=== PATIENT | male | born 1945 | race African-American/Black ===

== ENCOUNTER 2017-09-24 16:41 | Inpatient (IN) | payer MEDICARE, MEDICAID ==
[2017-09-24 18:22] LABS: Hemoglobin 9.4 g/dL (14.0-18.0); Mean Corpuscular HGB CONC 31.9 g/dL (32.0-36.0); Mean Corpuscular Hemoglobin 29.8 pg (27.0-31.0); Mean Corpuscular Volume 93.4 fl (80.0-94.0); Mean Platelet Volume 7.9 fL (7.4-10.4); Platelet Count 331 thou/uL (130-400); RBC Distribution Width 13.6 % (11.5-14.5); Red Blood Cell (RBC) Count 3.14 mill/uL (4.70-6.10); White Blood Cell (WBC) Count 24.4 thou/uL (4.8-10.8)
[2017-09-24 18:39] LABS: Bilirubin Negative (Negative); Blood, Urine Negative (Negative); Clarity TURBID (Clear); Glucose, Urine (Dipstick) Negative (Negative); Leukocyte Large (Negative); Nitrite Negative (Negative); Protein, Urine (Dipstick) 300 mg/dL (Neg-Trace); Specific Gravity, Urine 1.013 (1.002-1.036); Urobilinogen 0.2 mg/dL (0.2-1.0); pH, Urine 8.5 (5.0-9.0)
[2017-09-24 18:40] LABS: Bacteria/HPF 4+ HPF (None Seen); RBC/HPF 0-3 HPF (0-3); Squamous Epithelial 0-3 HPF (0-3); WBC/HPF 21-50 HPF (0-3)
[2017-09-24 18:41] LABS: Pathc Cast-AUWi Flag 3.89 (0-2.49)
[2017-09-24] MEDS ORDERED: Cefepime 2 GM/10 ML SYR ONE (18:41)
[2017-09-24 18:48] LABS: Lymphocytes 15 % (21-51); MDiff Complete? YES; Monocytes 6 % (0-10); Neutrophil 79 % (42-75); PLT Morphology Comment Appears Adequate
[2017-09-24 18:50] LABS: Crystals/HPF 1+ TRIPLE PHOS HPF (Negative); Hyaline Casts/LPF NONE SEEN LPF (0-3 Hyaline); Manual Microscopic Reviewed? No Path Casts Seen; Yeast-All Forms None Seen HPF (None Seen)
[2017-09-24 18:52] LABS: ALT (SGPT) 18 U/L (8-55); AST (SGOT) 23 U/L (5-34); Albumin 3.2 g/dL (3.4-4.8); Alkaline Phosphatase 90 U/L (40-150); Anion Gap 15 mmol/L (10-20); BUN (Urea Nitrogen) 97 mg/dL (8.4-25.7); Bilirubin, Total 0.2 mg/dL (0.2-1.2); CKMB 0.9 ng/mL (0-6.6); Calc. Creatinine Clearance 0 mL/min (70-130); Calcium 8.8 mg/dL (7.8-10.44); Carbon Dioxide 28 mmol/L (23-31); Chloride 95 mmol/L (98-107); Estimated GFR-MDRD 21; Globulin 5.3 g/dL (2.4-3.5); Glucose 156 mg/dL (80-115); Magnesium 3.1 mg/dL (1.6-2.6); Protein, Total 8.5 g/dL (5.8-8.1); Sodium 134 mmol/L (136-145); Troponin I 0.055 ng/mL (< 0.028)
--- NOTE | 2017-09-24 18:57 | RAD ---
CHEST ONE VIEW 09/24/17 HISTORY: Shortness of breath. COMPARISON: Chest one view 05/02/17. FINDINGS: There are air space opacities in both lower lobes. This appears improved from the comparison examinat ion. No pneumothorax. Cardiac and mediastinal contours are similar. IMPRESSION: Improving air space opacities in the lower lobe concerning for pneumonia, although opacities do persi sts. POS: [facility]
[2017-09-24] MEDS ORDERED: Oseltamivir 6 MG/ML ORAL SUSP PER TUBE SCH (21:15)
[2017-09-24 22:02] LABS: Troponin I 0.048 ng/mL (< 0.028)
[2017-09-25 01:30] LABS: Troponin I 0.038 ng/mL (< 0.028)
[2017-09-25] MEDS: Sodium Chloride 0.45% 1,000 ML IV SCH ×3 (14:40→15:22)
[2017-09-25] MEDS ORDERED: Acetaminophen 325 MG TAB PO PRN (15:09)
[2017-09-25] MEDS ORDERED: Dextrose 50% Abboject 50 ML SYRINGE IVP PRN (15:10)
[2017-09-25] MEDS ORDERED: Dextrose 5% in Water 1,000 ML IV PRN (15:10)
[2017-09-25] MEDS ORDERED: Insulin Regular 300 UNITS/3 ML VIAL SC PRN (15:10)
--- NOTE | 2017-09-25 15:53 | EKG ---
Test Reason : FEVERS Blood Pressure : / mmHG Vent. Rate : 081 BPM Atrial Rate : 081 BPM P-R Int : 146 ms QRS Dur : 090 ms QT Int : 414 ms P-R-T Axes : 046 004 -42 degrees QTc Int : 480 ms Normal sinus rhythm Possible Left atrial enlargement Nonspecific T wave abnormality Prolonged QT Abnormal ECG Confirmed by CAPRICE HERNÁNDEZ ([id number]), home health specialist RD UMAÑA ([id number]) on 09/25/2017 3:52:41 PM Referred By: Confirmed By:CAPRICE HERNÁNDEZ
[2017-09-25] MEDS ORDERED: Piperacillin/Tazobactam 2.25 GM in Sodium Chloride 0.9% 100 ML IVPB SCH (16:00)
[2017-09-25] MEDS: Piperacillin/Tazobactam 2.25 GM in Sodium Chloride 0.9% 50 ML IVPB SCH ×2 (16:49→23:23)
[2017-09-25] MEDS: Oseltamivir 75 MG CAP PO SCH (23:23)
--- NOTE | 2017-09-25 23:35 | HP ---
DATE OF ADMISSION: 09/25/2017 REASON FOR ADMISSION AND CHIEF COMPLAINT: Fever, lethargic. HISTORY OF PRESENT ILLNESS: Mr. Troy is a 72-year-old -[place] male with past medical histo ry of CVA and diabetes mellitus, PEG tube feeding, was found to have fever a few days ago, maximum te mperature of 101.9. The patient was started on Tamiflu because of exposure to the flu in the residential, but the fever did not resolve. The patient was also getting lethargic, not tolerating tube fe eding very well, with change in mental status and fever, the patient was sent to the hospital. In th e ER, the patient was evaluated and found to have fever and possible urinary tract infection versus b asilar pneumonia. The patient received cefepime, Levaquin, and vancomycin and also received IV fluid s in view of acute kidney injury. The patient is being admitted for further management. PAST MEDICAL HISTORY: 1. Diabetes mellitus. 2. Hypertension. 3. History of cerebrovascular accident. 4. Chronic kidney disease, stage 3. 5. History of hematuria. 6. History of pneumonia. 7. History of recurrent urinary tract infection. PAST SURGICAL HISTORY: 1. Status post appendectomy. 2. Status post cholecystectomy. 3. Status post rotator cuff injury. 4. Status post PEG tube placement. 5. Status post suprapubic catheter placement. CURRENT MEDICATIONS: Plavix 75 mg daily, amlodipine 5 mg daily, hydralazine 100 mg 4 times daily, is osorbide dinitrate 30 mg b.i.d., aspirin 81 mg daily, oxybutynin chloride 5 mg b.i.d., Keppra 500 b.i .d., clonidine 0.1 q.6 hours p.r.n., Lasix 40 mg daily, also get Levemir insulin 20 units daily . ALLERGIES: No known drug allergies. FAMILY HISTORY: Nothing of interest. SOCIAL HISTORY: The patient is a resident of [facility]. No history of smoking. No hi story of alcohol intake. REVIEW OF SYSTEMS: Cardiovascular: No chest pain, no shortness of breath. Respiratory: Fever. Johnson s cough productive with yellow sputum. Gastrointestinal: No nausea or vomiting. No abdominal pain. Central Nervous System: No headache, no dizziness. PHYSICAL EXAMINATION: GENERAL: The patient is alert, awake, oriented x2. VITAL SIGNS: Temperature 101, respirations 20, blood pressure 140/70, pulse 80. HEENT: Head is normocephalic, atraumatic. Pupils are equal and reactive to light. Nasopharynx is d ry and pale. Hard and soft palate, no lesions seen. SKIN: Skin turgor decreased. NECK: Supple. No JVD. LUNGS: Breath sounds diminished bilaterally. Percussion dull bilaterally. Crackles present at both bases. CARDIAC: S1, S2 regular. ABDOMEN: Soft, no distention, no tenderness. Normal bowel sounds present. RECTAL: Deferred. CENTRAL NERVOUS SYSTEM: No focal deficit. LABORATORY AND X-RAY FINDINGS: CBC shows WBC 24,000, hemoglobin 9.4, hematocrit 29, platelets 331. Metabolic panel: Sodium 134, potassium 4, chloride 95, CO2 of 28, BUN 97, creatinine 3.5, glucose 15 6. CK-MB 0.9, troponin I 0.055. Urinalysis shows wbc 21-50, bacteria 4+, leukocyte esterase large. Chest x-ray shows bibasal airspace opacities suggestive of pneumonia. EKG shows normal sinus rhythm , no acute ST-T wave changes seen. ASSESSMENT: 1. Leukocytosis and fever, rule out sepsis. 2. Pneumonia, bibasal. 3. Urinary tract infection. 4. Acute kidney injury. 5. Elevated troponin I, rule out myocardial infarction. 6. Diabetes mellitus. 7. Hypertension. 8. Chronic kidney disease, stage 3. 9. History of cerebrovascular accident. PLAN: 1. Vital signs q.4 hours. 2. Activity: As tolerated. 3. Allergies: No known drug allergies. 4. IV fluids: Half normal at 100 mL per hour. 5. Diet: Start tube feeding. 6. Zosyn 2.25 grams IV piggyback q.6 hours. 7. Continue residential medication. 8. Accu-Chek a.c. and at bedtime. 9. Sliding scale mild with regular insulin. 10. The patient is DNR.
[2017-09-26 01:48] VITALS: BMI 28.8
[2017-09-26] MEDS: Sodium Chloride 0.45% 1,000 ML IV SCH ×2 (01:51→13:39)
[2017-09-26] MEDS: Piperacillin/Tazobactam 2.25 GM in Sodium Chloride 0.9% 50 ML IVPB SCH ×4 (05:50→21:18)
[2017-09-26 09:31] LABS: #Eosinphils 0.3 thou/uL (0.0-0.7); #Lymphocytes 2.1 thou/uL (1.20-3.40); #Monocytes 1.1 thou/uL (0.11-0.59); #Neutrophils 11.2 thou/uL (1.40-6.50); %Basophils 0.2 % (0.0-1.0); %Eosinophils 1.9 % (0.0-10.0); %Lymphocytes 14.2 % (21.0-51.0); %Monocytes 7.4 % (0.0-10.0); %Neutrophils 76.4 % (42.0-75.0); Hemoglobin 8.7 g/dL (14.0-18.0); Mean Corpuscular HGB CONC 32.1 g/dL (32.0-36.0); Mean Corpuscular Hemoglobin 30.5 pg (27.0-31.0); Mean Platelet Volume 8.2 fL (7.4-10.4); Platelet Count 289 thou/uL (130-400); RBC Distribution Width 13.5 % (11.5-14.5); Red Blood Cell (RBC) Count 2.84 mill/uL (4.70-6.10); White Blood Cell (WBC) Count 14.6 thou/uL (4.8-10.8)
[2017-09-26 09:45] LABS: Anion Gap 13 mmol/L (10-20); BUN (Urea Nitrogen) 83 mg/dL (8.4-25.7); Calc. Creatinine Clearance 27 mL/min (70-130); Calcium 8.3 mg/dL (7.8-10.44); Carbon Dioxide 25 mmol/L (23-31); Chloride 103 mmol/L (98-107); Estimated GFR-MDRD 24; Glucose 100 mg/dL (80-115); Potassium 3.7 mmol/L (3.5-5.1); Sodium 137 mmol/L (136-145)
[2017-09-26] MEDS: Oseltamivir 75 MG CAP PO SCH ×2 (09:51→21:41)
[2017-09-26] MEDS ORDERED: Mag-Al 1200 mg/1200 mg/30 ML UDCUP PER TUBE PRN (16:48)
[2017-09-26] MEDS ORDERED: Calcium Carbonate 500 MG ChewTAB PER TUBE PRN (16:50)
[2017-09-26] MEDS ORDERED: cloNIDine 0.1 MG TAB PER TUBE PRN (16:51)
[2017-09-26] MEDS: hydrALAZINE 25 MG TAB PER TUBE SCH ×2 (18:23→21:44)
[2017-09-26] MEDS: guaiFENesin/Codeine Phosphate 200 mg/20 mg 10 ml UD Cup PER TUBE SCH ×2 (18:39→21:41)
[2017-09-26] MEDS: Oxybutynin 5 MG TAB PER TUBE SCH (21:41)
[2017-09-26] MEDS: Insulin Detemir 100 UNITS/ML 20 UNITS in Pre-Filled Syringe 1 EACH SC SCH (21:41)
[2017-09-26] MEDS: Sodium Bicarbonate Tab 325 MG TAB PER TUBE SCH (21:43)
[2017-09-26] MEDS: Atorvastatin Calcium 40 MG TAB PER TUBE SCH (21:43)
[2017-09-26] MEDS: Isosorbide Dinitrate 20 MG TAB PER TUBE SCH (21:44)
[2017-09-26] MEDS: Milk Of Magnesia 30 ML UDCUP PER TUBE SCH (21:45)
[2017-09-26] MEDS: levETIRAcetam 500 mg/5 ml Oral Solution PER TUBE SCH (21:45)
[2017-09-27] MEDS: Sodium Chloride 0.45% 1,000 ML IV SCH ×2 (00:31→17:42)
[2017-09-27] MEDS: guaiFENesin/Codeine Phosphate 200 mg/20 mg 10 ml UD Cup PER TUBE SCH ×6 (02:52→22:34)
[2017-09-27] MEDS: Piperacillin/Tazobactam 2.25 GM in Sodium Chloride 0.9% 50 ML IVPB SCH ×4 (04:41→22:35)
[2017-09-27] MEDS: Milk Of Magnesia 30 ML UDCUP PER TUBE SCH ×2 (09:06→22:35)
[2017-09-27] MEDS: Amlodipine 10 MG TAB PER TUBE SCH (09:07)
[2017-09-27] MEDS: levETIRAcetam 500 mg/5 ml Oral Solution PER TUBE SCH ×2 (09:07→22:32)
[2017-09-27] MEDS: Oxybutynin 5 MG TAB PER TUBE SCH ×2 (09:07→22:33)
[2017-09-27] MEDS: hydrALAZINE 25 MG TAB PER TUBE SCH ×4 (09:07→22:33)
[2017-09-27] MEDS: Sodium Bicarbonate Tab 325 MG TAB PER TUBE SCH ×2 (09:08→22:32)
[2017-09-27] MEDS: Isosorbide Dinitrate 20 MG TAB PER TUBE SCH ×2 (09:08→22:32)
[2017-09-27] MEDS: Clopidogrel Bisulfate 75 MG TAB PER TUBE SCH (09:08)
[2017-09-27] MEDS: Oseltamivir 75 MG CAP PO SCH ×2 (09:10→22:34)
--- NOTE | 2017-09-27 15:02 | PQF ---
CLINICAL DOCUMENTATION IMPROVEMENT CLARIFICATION FORM: ICD-10 Updated PLEASE DO AN ADDENDUM TO THE PROGRESS NOTE WITH ANY DOCUMENTATION UPDATES OR ADDITIONS AND CARRY THROUGH TO DC SUMMARY. THANK YOU. DATE: 09/27/17 ATTN: DR. MORENO Please exercise your independent, professional judgment in responding to the clarification form. Clinical indicators are provided on the bottom of this form for your review Please check appropriate box(s) to clarify if the following diagnosis has been ruled in our ruled out: SEPSIS [ ] Ruled in diagnosis [ ] Continue to treat [ ] Resolved [ ] Ruled out diagnosis [ y] Cannot rule out diagnosis [ ] Other diagnosis [ ] Unable to determine In addition, please specify: Present on Admission (POA): [ ] Yes [ ] No [ ] Unable to determine For continuity of documentation, please document condition throughout progress notes and discharge summary. Thank You. CLINICAL INDICATORS - SIGNS / SYMPTOMS / LABS H&P 09/25: " LEUKOCYTOSIS AND FEVER, RULE OUT SEPSIS" H&P 09/25: "...WAS FOUND TO HAVE FEVER A FEW DAYS AGO, MAXIMUM TEMPERATURE OF 101.9" H&P 09/25: "CHANGE IN MENTAL STATUS" WBC 24.4 RISKS: PNEUMONIA UTI ADMA ON CKD STAGE 3 TREATMENT: URINE AND BLOOD CULTURES SERIAL LABS IV LEVAQUIN (ER) IV CEFEPIME (ER) IV FLUIDS (ER-PRESENT) IV ZOSYN (09/25-PRESENT) (This form is maintained as a part of the permanent medical record) 2014 [employer]. All Rights Reserved GINA [email or web address] Office: [phone] [facility] H[facility]PITALShank[facility]
[2017-09-27] MEDS: Atorvastatin Calcium 40 MG TAB PER TUBE SCH (22:33)
[2017-09-27] MEDS: Insulin Detemir 100 UNITS/ML 20 UNITS in Pre-Filled Syringe 1 EACH SC SCH (22:52)
[2017-09-28] MEDS: guaiFENesin/Codeine Phosphate 200 mg/20 mg 10 ml UD Cup PER TUBE SCH ×6 (01:25→21:56)
[2017-09-28] MEDS: Sodium Chloride 0.45% 1,000 ML IV SCH ×2 (02:07→16:45)
[2017-09-28] MEDS: Piperacillin/Tazobactam 2.25 GM in Sodium Chloride 0.9% 50 ML IVPB SCH ×4 (03:58→21:58)
[2017-09-28 07:00] LABS: #Eosinphils 0.6 thou/uL (0.0-0.7); #Lymphocytes 1.9 thou/uL (1.20-3.40); #Neutrophils 8.6 thou/uL (1.40-6.50); %Eosinophils 4.9 % (0.0-10.0); %Lymphocytes 15.8 % (21.0-51.0); %Monocytes 8.2 % (0.0-10.0); %Neutrophils 71.1 % (42.0-75.0); Hemoglobin 8.1 g/dL (14.0-18.0); Mean Corpuscular HGB CONC 31.4 g/dL (32.0-36.0); Mean Corpuscular Volume 95.5 fl (80.0-94.0); Mean Platelet Volume 8.1 fL (7.4-10.4); Platelet Count 320 thou/uL (130-400); RBC Distribution Width 13.6 % (11.5-14.5); Red Blood Cell (RBC) Count 2.68 mill/uL (4.70-6.10); White Blood Cell (WBC) Count 12.1 thou/uL (4.8-10.8)
[2017-09-28 07:17] LABS: Anion Gap 11 mmol/L (10-20); BUN (Urea Nitrogen) 64 mg/dL (8.4-25.7); Calc. Creatinine Clearance 33 mL/min (70-130); Calcium 8.3 mg/dL (7.8-10.44); Carbon Dioxide 29 mmol/L (23-31); Chloride 103 mmol/L (98-107); Estimated GFR-MDRD 31; Glucose 102 mg/dL (80-115); Potassium 4.3 mmol/L (3.5-5.1); Sodium 139 mmol/L (136-145)
[2017-09-28] MEDS: hydrALAZINE 25 MG TAB PER TUBE SCH ×4 (09:04→21:56)
[2017-09-28] MEDS: levETIRAcetam 500 mg/5 ml Oral Solution PER TUBE SCH ×2 (09:04→21:57)
[2017-09-28] MEDS: Oseltamivir 75 MG CAP PO SCH ×2 (09:05→21:57)
[2017-09-28] MEDS: Sodium Bicarbonate Tab 325 MG TAB PER TUBE SCH ×2 (09:05→21:56)
[2017-09-28] MEDS: Isosorbide Dinitrate 20 MG TAB PER TUBE SCH ×2 (09:05→21:57)
[2017-09-28] MEDS: Clopidogrel Bisulfate 75 MG TAB PER TUBE SCH (09:06)
[2017-09-28] MEDS: Oxybutynin 5 MG TAB PER TUBE SCH ×2 (09:06→21:57)
[2017-09-28] MEDS: Amlodipine 10 MG TAB PER TUBE SCH (09:06)
[2017-09-28] MEDS: Milk Of Magnesia 30 ML UDCUP PER TUBE SCH ×2 (09:06→21:58)
[2017-09-28] MEDS: Atorvastatin Calcium 40 MG TAB PER TUBE SCH (21:57)
[2017-09-28] MEDS: Insulin Detemir 100 UNITS/ML 20 UNITS in Pre-Filled Syringe 1 EACH SC SCH (22:12)
[2017-09-29] MEDS: guaiFENesin/Codeine Phosphate 200 mg/20 mg 10 ml UD Cup PER TUBE SCH ×7 (01:07→22:10)
[2017-09-29] MEDS: Piperacillin/Tazobactam 2.25 GM in Sodium Chloride 0.9% 50 ML IVPB SCH ×4 (05:21→22:09)
[2017-09-29] MEDS: Amlodipine 10 MG TAB PER TUBE SCH (09:18)
[2017-09-29] MEDS: Clopidogrel Bisulfate 75 MG TAB PER TUBE SCH (09:21)
[2017-09-29] MEDS: Sodium Bicarbonate Tab 325 MG TAB PER TUBE SCH ×2 (09:22→22:12)
[2017-09-29] MEDS: Oseltamivir 75 MG CAP PO SCH ×2 (09:22→22:11)
[2017-09-29] MEDS: Milk Of Magnesia 30 ML UDCUP PER TUBE SCH ×2 (09:22→22:10)
[2017-09-29] MEDS: Oxybutynin 5 MG TAB PER TUBE SCH ×2 (09:22→22:11)
[2017-09-29] MEDS: Isosorbide Dinitrate 20 MG TAB PER TUBE SCH ×2 (09:23→22:11)
[2017-09-29] MEDS: hydrALAZINE 25 MG TAB PER TUBE SCH ×4 (09:23→22:12)
[2017-09-29] MEDS: levETIRAcetam 500 mg/5 ml Oral Solution PER TUBE SCH ×2 (09:23→22:10)
[2017-09-29] MEDS: Sodium Chloride 0.45% 1,000 ML IV SCH (10:24)
[2017-09-29] MEDS: Insulin Detemir 100 UNITS/ML 20 UNITS in Pre-Filled Syringe 1 EACH SC SCH (22:11)
[2017-09-29] MEDS: Atorvastatin Calcium 40 MG TAB PER TUBE SCH (22:12)
[2017-09-30] MEDS: Sodium Chloride 0.45% 1,000 ML IV SCH ×3 (00:23→20:01)
[2017-09-30] MEDS: guaiFENesin/Codeine Phosphate 200 mg/20 mg 10 ml UD Cup PER TUBE SCH ×7 (02:09→20:02)
[2017-09-30] MEDS: Piperacillin/Tazobactam 2.25 GM in Sodium Chloride 0.9% 50 ML IVPB SCH ×3 (05:10→15:46)
[2017-09-30 06:01] LABS: Anion Gap 13 mmol/L (10-20); BUN (Urea Nitrogen) 61 mg/dL (8.4-25.7); Calc. Creatinine Clearance 31 mL/min (70-130); Calcium 8.5 mg/dL (7.8-10.44); Carbon Dioxide 27 mmol/L (23-31); Chloride 105 mmol/L (98-107); Estimated GFR-MDRD 28; Glucose 81 mg/dL (80-115); Potassium 5.1 mmol/L (3.5-5.1); Sodium 140 mmol/L (136-145)
[2017-09-30 06:14] LABS: Eosinophils 2 % (0-10); Hemoglobin 8.1 g/dL (14.0-18.0); Lymphocytes 21 % (21-51); MDiff Complete? YES; Mean Corpuscular HGB CONC 30.7 g/dL (32.0-36.0); Mean Corpuscular Hemoglobin 29.1 pg (27.0-31.0); Mean Corpuscular Volume 94.9 fl (80.0-94.0); Mean Platelet Volume 8.3 fL (7.4-10.4); Monocytes 3 % (0-10); Neutrophil 74 % (42-75); PLT Morphology Comment Appears Adequate; Platelet Count 333 thou/uL (130-400); RBC Distribution Width 13.6 % (11.5-14.5); Red Blood Cell (RBC) Count 2.78 mill/uL (4.70-6.10); White Blood Cell (WBC) Count 14.6 thou/uL (4.8-10.8)
[2017-09-30] MEDS: levETIRAcetam 500 mg/5 ml Oral Solution PER TUBE SCH ×2 (09:50→20:01)
[2017-09-30] MEDS: Sodium Bicarbonate Tab 325 MG TAB PER TUBE SCH ×2 (09:51→20:01)
[2017-09-30] MEDS: Clopidogrel Bisulfate 75 MG TAB PER TUBE SCH (09:51)
[2017-09-30] MEDS: Milk Of Magnesia 30 ML UDCUP PER TUBE SCH ×2 (09:51→20:01)
[2017-09-30] MEDS: Amlodipine 10 MG TAB PER TUBE SCH (09:51)
[2017-09-30] MEDS: hydrALAZINE 25 MG TAB PER TUBE SCH ×4 (09:51→20:02)
[2017-09-30] MEDS: Isosorbide Dinitrate 20 MG TAB PER TUBE SCH ×2 (09:51→20:01)
[2017-09-30] MEDS: Oxybutynin 5 MG TAB PER TUBE SCH ×2 (09:52→20:01)
[2017-09-30] MEDS: Oseltamivir 75 MG CAP PO SCH (09:52)
[2017-09-30] MEDS: Atorvastatin Calcium 40 MG TAB PER TUBE SCH (20:01)
[2017-09-30] MEDS: Insulin Detemir 100 UNITS/ML 20 UNITS in Pre-Filled Syringe 1 EACH SC SCH (20:02)
[2017-09-30] MEDS: Amoxicillin/Potassium Clav 875 MG TAB PER TUBE SCH (20:02)
[2017-10-01] MEDS: guaiFENesin/Codeine Phosphate 200 mg/20 mg 10 ml UD Cup PER TUBE SCH ×2 (00:54→05:49)
[2017-10-01] MEDS: levETIRAcetam 500 mg/5 ml Oral Solution PER TUBE SCH (10:30)
[2017-10-01] MEDS: Milk Of Magnesia 30 ML UDCUP PER TUBE SCH (10:30)
[2017-10-01] MEDS: hydrALAZINE 25 MG TAB PER TUBE SCH (10:31)
[2017-10-01] MEDS: Amoxicillin/Potassium Clav 875 MG TAB PER TUBE SCH (10:31)
[2017-10-01] MEDS: Sodium Bicarbonate Tab 325 MG TAB PER TUBE SCH (10:31)
[2017-10-01] MEDS: Isosorbide Dinitrate 20 MG TAB PER TUBE SCH (10:31)
[2017-10-01] MEDS: Amlodipine 10 MG TAB PER TUBE SCH (10:32)
[2017-10-01] MEDS: Clopidogrel Bisulfate 75 MG TAB PER TUBE SCH (10:33)
[2017-10-01] MEDS: Oxybutynin 5 MG TAB PER TUBE SCH (10:33)
[2017-10-01 11:51] VITALS: BP 164/69; TEMP 98.5
--- NOTE | 2017-10-05 06:44 | DIS ---
DATE OF ADMISSION: 09/24/2017 DATE OF DISCHARGE: 10/01/2017 ADMITTING DIAGNOSES: 1. Leukocytosis and fever, rule out sepsis. 2. Pneumonia, bilateral, bibasal, aspiration. 3. Urinary tract infection. 4. Acute kidney injury. 5. Elevated troponin I, rule out myocardial infarction. 6. Diabetes mellitus. 7. Hypertension. 8. Chronic kidney disease, stage 3. 9. History of cerebrovascular accident. FINAL DIAGNOSES: 1. Aspiration pneumonia, bilateral on both bases, improving. 2. Urinary tract infection. 3. Leukocytosis and fever, resolved. 4. Acute kidney injury, improved. 5. Chronic kidney disease, stage 3. 6. Elevated troponin I. No evidence of acute myocardial infarction. 7. Diabetes mellitus. 8. Metabolic encephalopathy, improved. 9. Hypertension, uncontrolled, improved. 10. History of cerebrovascular accident. BRIEF SUMMARY OF HOSPITAL COURSE: Mr. Troy is a 72-year-old -[place]enian male with past medical history of CVA, chronic kidney disease, diabetes, and hypertension, who was found to have fever of 101. The patient was also found to have leukocytosis of 24,000. The patient was found to have bibasilar pneumonia, possibly aspiration as well as urinary tract infection. The patient has a suprapubic catheter. His influenza screen was negative. The patient was exposed to insulin there at the long-term, so he has been treated with Tamiflu. The patient was started on Zosyn and IV fluids because of acute kidney injury. His BUN was 97 on admission, came down to 60 with fluids; and creatinine was 3.57, came down to 2.7 with fluid therapy. His WBC came down from 24,000 to 12,000. Urine culture showed growth of Providencia as well as Proteus mirabilis resistant to Cipro and Macrobid but sensitive to Zosyn. The patient was continued on zosyn later it was changed to augmentin. In view of improvement, the patient is being discharged back to long-term. The patient did have elevated blood pressure. His medications were adjusted to control the blood pressure. The patient also had a swallow evaluation done to recheck his swallow ability, but the patient still cannot swallow himself. He still has aspiration problems. So in view of that, he was continued on bolus tube feedings. His blood cultures revealed no growth. PHYSICAL EXAMINATION: GENERAL: At the time of discharge, he was stable. VITAL SIGNS: Stable. LUNGS: Clear. HEART: Sounds regular. ABDOMEN: Soft and nontender. Bowel sounds present. DISCHARGE MEDICATIONS: Include sodium bicarbonate 650 b.i.d., Plavix 75 mg daily, insulin Levemir 20 units daily, Lipitor 40 mg daily, aspirin 81 mg daily , amlodipine 10 mg daily, hydralazine 100 mg q.i.d., oxybutynin chloride 5 mg b.i.d., calcium carbonate, Tums 500 q.i.d., DuoNeb q.i.d. p.r.n., clonidine p.r.n., Keppra 500 b.i.d., Imdur 60 b.i.d., ferrous sulfate daily, Lasix 40 mg daily, and the patient is given Augmentin 875 b.i.d. for 10 days. He has been transferred to a different long-term in [place]. [facility]
--- NOTE | 2017-10-08 12:52 | PQF ---
SHIREEN GASTON, GEO Buitrago MD [id number] LAURA EDWARDS [id number] CLINICAL DOCUMENTATION CLARIFICATION FORM: POST DISCHARGE DATE: 10/08/17 ATTN: Dr. Jacinto Please exercise your independent, professional judgment in responding to the clarification form. Clinical indicators are provided on the bottom of this form for your review Please check appropriate box(s): [ y] UTI please specify if due to or related to (as applicable): [ ] Indwelling catheter [ ] Self-catheterization [ y] Suprapubic catheter [ ] Unable to determine etiology UTI Site: [ ] Kidney [ ] Ureter [y ] Bladder [ ] Urethra [ ] Unable to determine Specify Organism (if known): [ ] Unknown organism [ ] Contaminated urine specimen without UTI [ ] Other diagnosis [ ] Unable to determine In addition, please specify: Present on Admission (POA): [ y] Yes [ ] No [ ] Unable to determine For continuity of documentation, please document condition throughout progress notes and discharge summary. Thank You. CLINICAL INDICATORS - SIGNS / SYMPTOMS / LABS Positive urinalysis Fever Documentation: UTI RISK FACTORS History indwelling catheter Debility / prison resident TREATMENT: Antibiotics IVF Sumner cath removed / changed (This form is maintained as a part of the permanent medical record) 2014 [employer]. All Rights Reserved [email or web address] [email or web address] [phone] MTDShankar
== END 2017-10-01 13:15 | disposition swing bed (61) | DRG 698 ==
LOC: ERS 16:41 → ERHOLD 20:32 → SURG A 09-25 13:57
PROVIDERS: ADMIT Internal Medicine; ATTEND Internal Medicine
DX: T83.511A Infection and inflammatory reaction due to indwelling urethral catheter, initial encounter (principal); A41.9 Sepsis, unspecified organism; J69.0 Pneumonitis due to inhalation of food and vomit; R65.20 Severe sepsis without septic shock; G93.41 Metabolic encephalopathy; N17.9 Acute kidney failure, unspecified; L89.152 Pressure ulcer of sacral region, stage 2; E11.22 Type 2 diabetes mellitus with diabetic chronic kidney disease; N18.3 Chronic kidney disease, stage 3 (moderate); Z93.1 Gastrostomy status; Z86.73 Personal history of transient ischemic attack (TIA), and cerebral infarction without residual deficits; I12.9 Hypertensive chronic kidney disease with stage 1 through stage 4 chronic kidney disease, or unspecified chronic kidney disease; Z79.01 Long term (current) use of anticoagulants; Z79.82 Long term (current) use of aspirin; Z79.4 Long term (current) use of insulin; Z66 Do not resuscitate; Z96.0 Presence of urogenital implants; B96.4 Proteus (mirabilis) (morganii) as the cause of diseases classified elsewhere; B96.89 Other specified bacterial agents as the cause of diseases classified elsewhere; Z16.20 Resistance to unspecified antibiotic; E86.0 Dehydration
CPT/HCPCS: 36415; 36416; 71045; 80048; 80053; 81003; 81015; 82553; 83605; 83735; 83880; 84484; 85025; 87040; 87077; 87086; 87186; 93005; 96361; 96365; 96367; 96375; G8996-GN-CN; G8997-GN-CM; J0692; J1815; J1956; J2543; J3370; J7050

== ENCOUNTER 2017-12-12 03:14 | Inpatient (IN) | payer MEDICARE, MEDICAID ==
[2017-12-12 04:24] LABS: Bilirubin Negative (Negative); Blood, Urine Negative (Negative); Clarity CLOUDY (Clear); Glucose, Urine (Dipstick) Negative (Negative); Leukocyte Large (Negative); Nitrite Positive (Negative); Protein, Urine (Dipstick) 100 mg/dL (Neg-Trace); Specific Gravity, Urine 1.012 (1.002-1.036); Urobilinogen 0.2 mg/dL (0.2-1.0); pH, Urine 8.5 (5.0-9.0)
[2017-12-12 04:26] LABS: Pathc Cast-AUWi Flag 0.88 (0-2.49)
[2017-12-12 04:31] LABS: Yeast-AUWi Flag 46.5 (0-25.0)
[2017-12-12 04:46] LABS: RBC/HPF 0-3 HPF (0-3)
[2017-12-12 04:47] LABS: Squamous Epithelial 0-3 HPF (0-3)
[2017-12-12 04:48] LABS: Bacteria/HPF 3+ HPF (None Seen); Yeast-All Forms None Seen HPF (None Seen)
[2017-12-12 04:50] LABS: Hyaline Casts/LPF NONE SEEN LPF (0-3 Hyaline)
[2017-12-12 05:19] LABS: #Eosinphils 0.5 thou/uL (0.0-0.7); #Lymphocytes 4.4 thou/uL (1.20-3.40); #Monocytes 0.9 thou/uL (0.11-0.59); #Neutrophils 7.4 thou/uL (1.40-6.50); %Eosinophils 3.8 % (0.0-10.0); %Lymphocytes 33.1 % (21.0-51.0); %Monocytes 6.9 % (0.0-10.0); %Neutrophils 56.2 % (42.0-75.0); Hemoglobin 8.7 g/dL (14.0-18.0); Mean Corpuscular Hemoglobin 29.4 pg (27.0-31.0); Mean Platelet Volume 9.3 fL (7.4-10.4); Platelet Count 222 thou/uL (130-400); RBC Distribution Width 14.6 % (11.5-14.5); Red Blood Cell (RBC) Count 2.96 mill/uL (4.70-6.10); White Blood Cell (WBC) Count 13.2 thou/uL (4.8-10.8)
[2017-12-12 05:37] LABS: Anion Gap 13 mmol/L (10-20); BUN (Urea Nitrogen) 91 mg/dL (8.4-25.7); Calc. Creatinine Clearance 0 mL/min (70-130); Calcium 9.3 mg/dL (7.8-10.44); Carbon Dioxide 24 mmol/L (23-31); Chloride 109 mmol/L (98-107); Estimated GFR-MDRD 30; Potassium 4.1 mmol/L (3.5-5.1); Sodium 142 mmol/L (136-145)
[2017-12-12 05:45] LABS: Glucose 52 mg/dL (80-115)
[2017-12-12] MEDS ORDERED: Dextrose 50% Abboject 50 ML SYRINGE ONE ×2 (06:00→06:11)
[2017-12-12] MEDS ORDERED: Piperacillin/Tazobactam 3.375 GM in Sodium Chloride 0.9% 100 ML IVPB SCH (07:00)
[2017-12-12] MEDS ORDERED: cefTRIAXone\\ROCEPHIN 1 GM VIAL IM SCH (07:00)
--- NOTE | 2017-12-12 08:21 | RAD ---
KUB: Date: 12/12/17 PROVIDED CLINICAL HISTORY: Clogged G tube. FINDINGS: Comparison made with study dated 04/18/17. The visualized lung bases are free of significant opacity. There is conspicuous colonic fecal retenti on suggesting constipation. There is an otherwise nonspecific bowel gas pattern. Surgical clips overl ie the left hemipelvis. Degenerative changes are seen involving the spine. Supine nature of the study is not sensitive for detection of pneumoperitoneum. Gastrostomy catheter overlies the left hemiabdom en. IMPRESSION: Findings suggesting constipation. POS: [facility]
[2017-12-12] MEDS ORDERED: Fleet Enema 133 ML BOT PR PRN (09:05)
[2017-12-12] MEDS ORDERED: Milk Of Magnesia 30 ML UDCUP PER TUBE PRN (09:05)
[2017-12-12] MEDS ORDERED: Loratadine 10 MG TAB PER TUBE PRN (09:05)
[2017-12-12] MEDS ORDERED: Ondansetron HCl/PF 4 MG/2 ML Vial IVP PRN (09:05)
[2017-12-12] MEDS ORDERED: Eucerin (Mineral Oil/Petrolatum,White) 30 gm Jar TOP PRN (09:05)
[2017-12-12] MEDS ORDERED: HumaLOG 300 UNITS/3 ML VIAL SC PRN (09:05)
[2017-12-12] MEDS ORDERED: Bisacodyl 10 MG SUPP PR PRN (09:05)
[2017-12-12] MEDS ORDERED: Mag-Al 1200 mg/1200 mg/30 ML UDCUP PER TUBE PRN (09:05)
[2017-12-12] MEDS ORDERED: Diabetic Tussin 200 MG/10 ML UDCUP PER TUBE PRN (09:05)
[2017-12-12] MEDS ORDERED: Dextrose 5% in Water 1,000 ML IV PRN (09:05)
[2017-12-12] MEDS ORDERED: Cefepime 1 GM in Sodium Chloride 0.9% 100 ML IVPB SCH (09:05)
[2017-12-12] MEDS ORDERED: Artificial Tears 18 DROP/0.9 ML EA EYE PRN (09:05)
[2017-12-12] MEDS ORDERED: Dextrose 50% Abboject 50 ML SYRINGE SLOW IVP PRN (09:05)
[2017-12-12] MEDS ORDERED: Sodium Chloride 0.65% Nasal 44 ML BOT EA NARE PRN (09:05)
[2017-12-12] MEDS ORDERED: Loperamide HCl 2 MG CAP PER TUBE PRN (09:05)
[2017-12-12] MEDS ORDERED: Ondansetron ODT 4 MG TAB SL PRN (09:05)
[2017-12-12] MEDS ORDERED: Heparin 5,000 UNITS/ML VIAL SC SCH ×2 (09:05→10:00)
[2017-12-12] MEDS ORDERED: Chloraseptic Spray 180 ml Bottle PO PRN (09:05)
[2017-12-12] MEDS: Cefepime 1 GM, Admixture Fee 1 EACH in Sodium Chloride 0.9% 10 ML SLOW IVP SCH (10:26)
--- NOTE | 2017-12-12 11:43 | HP ---
PRIMARY CARE PHYSICIAN: Dr. Indy Mcfarlane. REASON FOR ADMISSION: Hypoglycemia, clogged PEG tube, and urinary tract infection. HISTORY OF PRESENT ILLNESS: A 72-year-old male who lives in [place] at the [facility]. The patient was not able to get any tube feeding because of malfunction of P EG tube and PEG appeared to be clogged at [facility] and that is why the patient did not get any tu be feeding and he received insulin. Because of that, the patient developed hypoglycemia and the socrates ent became altered. The patient also became lethargic and that is why patient was sent to emergency room for evaluation. In the emergency room, this patient was hypoglycemic. This patient is nonverbal and not able to prov christopher any history. He has previous history of stroke and he is bedbound and he has PEG tube for the st couple of years. The patient is not able to take anything by mouth. The patient did not have any fever or chills. He does not have any Sumner catheter at [facility], [facility] in the emergency room, catheter was placed and his urinalysis was consistent with urinary tract in fections. In the emergency room, the patient was given Rocephin, Zosyn, dextrose, IV fluid, and D50. Subsequently, the patient was admitted to medical floor. The patient does have out of hospital DNR paper work and the patient's DNR status is also confirmed with the patient's present at bedside , who provided some history. REVIEW OF SYSTEMS: All review of systems tried to review with the patient, but unfortunately unable to review because patient is mostly nonverbal and unable to communicate with me. PAST MEDICAL HISTORY: Diabetes mellitus type 2, insulin requiring; hypertension; history of CVA with bed bound status; oropharyngeal dysphagia with PEG tube; chronic kidney disease, stage 4; history of recurrent urinary tract infection; narcolepsy; seizure disorder; chronic constipation; benign enlarg ement of prostate. PAST SURGICAL HISTORY: Appendicectomy, cholecystectomy, rotator cuff injury, PEG tube placement, sup rapubic catheter placement. PAST PSYCHIATRIC HISTORY: Reviewed and negative. ALLERGIES: No known drug allergy. FAMILY HISTORY: No strong family history of premature coronary artery disease, stroke or cancer. SOCIAL HISTORY: The patient lives at [facility]. The patient is bed dylan ct. No history of tobacco, alcohol or illicit drug abuse. CURRENT HOME MEDICATIONS: Amlodipine 10 mg per tube daily, aspirin 81 mg per tube daily, Lipitor 40 mg per tube daily, calcium carbonate 500 mg per tube q.i.d. p.r.n., Catapres 0.1 mg per tube q.6 hour ly p.r.n., Plavix 75 mg per tube daily, ferrous sulfate 300 mg per tube daily, Lasix 40 mg per tube d aily, hydralazine 100 mg per tube q.i.d., insulin 20 units subcu p.m. and Humalog insulin as per slid ing scale per protocol, DuoNeb q.6 hourly p.r.n., Imdur 60 mg per tube daily, Keppra 500 mg per tube b.i.d., oxybutynin 5 mg per tube b.i.d., sodium bicarbonate 650 mg per tube b.i.d. PHYSICAL EXAMINATION: VITAL SIGNS: On arrival, blood pressure 188/105, pulse 60, respiratory rate 16, temperature 97.8, sa turation 99% on room air, weight 77.1 kilograms. GENERAL: The patient is currently alert, awake, nonverbal, does not follow any commands. HEAD: Normocephalic, atraumatic. EYES: Pupils round, reactive to light. Extraocular muscle intact. ENT: Oropharynx within normal limit. Dry mucous membranes. No oral lesion, no pharyngeal erythema, no exudate. NECK: Supple, no JVD, no thyromegaly, no carotid bruit. LUNGS: Clear to auscultation without any rhonchi or rales. CARDIAC: S1, S2 appears regular. No murmur, no gallop, no rub. ABDOMEN: PEG tube in place, not working. No distention. Bowel sound is present. No organomegaly, no mass, no suprapubic tenderness. Suprapubic catheter in place. BACK: Unremarkable. No CVA tenderness. EXTREMITIES: Upper extremity passive movement of all joints is normal. Lower extremity, diffuse mus devante atrophy and no edema. SKIN: No skin rash. PSYCHIATRIC: Flat affect. NEUROLOGIC: The patient does have spasticity and rigidity of upper extremity on the right side as we ll as on lower extremity. The patient is nonverbal. Detailed neurological examination is not possib le. SIGNIFICANT LABORATORY DATA: CBC: WBC 13.2, hemoglobin 8.7, MCV 95, platelet 222. BMP shows sodium 142, potassium 4.1, chloride 109, carbon dioxide 24, BUN 91, creatinine 2.60, glucose 52, calcium 9. 3. Urinalysis suggestive of UTI. Abdomen x-ray showing constipation. PEG tube in place. ASSESSMENT AND PLAN: 1. Urinary tract infection. 2. Acute metabolic encephalopathy due to hypoglycemia. 3. Hypoglycemia associated with inability to get oral intake as well as insulin. 4. Chronic kidney disease stage 4. 5. History of cerebrovascular accident with residual weakness and spasticity as well as oropharyngea l dysphagia with PEG tube. 6. PEG tube malfunction. 7. Hypertension. 8. Dyslipidemia. 9. Diabetes type 2 with hypoglycemia. 10. Seizure disorder. 11. Bedbound status. PLAN: 1. Admission to medical floor. Gastroenterology consultation for PEG tube malfunction. The patient will need PEG tube replacement. Empiric antibiotic therapy with cefepime 1 gram q.12 hourly based o n previous culture result. Follow up on urine culture result. Skin care. Supportive care, medicati on via PEG tube when PEG tube able to function. Tube feeding is replaced. Meanwhile, we will contin ue with dextrose half normal saline at 75 mL per hour to prevent recurrent hypoglycemia. 2. Deep venous thrombosis prophylaxis, heparin 5000 units subcu twice daily. 3. GI prophylaxis, Protonix 40 mg IV daily. 4. Code status: The patient has out of hospital DNR paper work. The patient's is present at [facility], who is decision maker, and code status confirmed DNR status. Disposition plan based on clinical course. We are expecting patient's stay in hospital more than 2 m idnights. While in hospital, we will also continue hyperglycemia protocol treatment. Plan of care d iscussed with the patient and at bedside.
[2017-12-12] MEDS: Dextrose 5 %-0.45 % NaCl 1,000 ML IV SCH (12:42)
[2017-12-12] MEDS: Labetalol HCl 100 MG/20 ML VIAL SLOW IVP PRN (14:22)
--- NOTE | 2017-12-12 17:05 | OP ---
DATE OF PROCEDURE: 12/12/2017 PROCEDURE: Bedside PEG tube replacement. INDICATION FOR PROCEDURE: Malnutrition, oropharyngeal dysphagia. DESCRIPTION OF PROCEDURE: After a review of the patient's abdomen and the existing PEG tube, it was determined that this was the original PEG tube placed approximately 2 years ago, which would allow fo r tract maturation and should be amenable to replacement at bedside. A Bard 22-Micronesian replacement PE G tube was then procured from the endoscopy suite and taken to the patient's bedside. The patient to lerated the procedure well with no immediate perioperative complications. FINDINGS: Using gentle traction, the preexisting PEG tube was removed with minimal amount of blood o ozing from the stomal tract site that was minimal in the amount after cleaning the wound and properly preparing the area. A 22-Micronesian Bard replacement PEG tube was procured. The balloon on the PEG tub e was tested prior to placement of the PEG tube and deemed to be intact. Then, using a small amount of Surgilube, it was placed on the end of the PEG tube with the PEG tube slowly advanced through the stomal tract into the stomach. The PEG tube after approximately 15 mL of normal saline was then inst illed into the balloon port of the PEG tube. With gentle traction then performed after instillation of the normal saline and a small amount of pressure then experienced upon pulling back. The external bumper was then advanced into place with approximately 6 cm noted on the side of the PEG tube at the external bumper and 5 cm at the skin. The procedure was then terminated with the PEG tube remaining at that site with nursing staff to affix to his abdomen to prevent any inadvertent pulling of the PE G tube. IMPRESSION: Successful placement of a Bard 22-Micronesian replacement PEG tube. RECOMMENDATIONS: 1. The PEG tube is good to use immediately for tube feeds. 2. We would follow standard PEG tube care precautions including keeping the area around the PEG tube dry, and do not place any dressings between the external bumper and the skin to avoid compression of the internal balloon, please rotate the tube approximately 720 degrees daily to prevent secretion an d crusting around the PEG tube, we would instill approximately 60 mL of water before any tube feeds a nd 60 mL of water at the conclusion of any tube feeds to prevent further food debris collection and m alfunctioning in the future. We will sign off at this time. Please call with any additional questions.
--- NOTE | 2017-12-12 20:40 | CON ---
DATE OF CONSULTATION: 12/12/2017 REASON FOR CONSULTATION: Clogged PEG tube/malfunctioning PEG tube. CONSULTING PHYSICIAN: Dr. Darby Ferraro. HISTORY OF PRESENT ILLNESS: The patient is a 72-year-old -[place] male with past medical his tory of narcolepsy, seizure disorder, stroke with encephalopathy, chronic lower back pain, obesity, e nd-stage renal disease on hemodialysis, GERD, constipation, BPH, recurrent UTIs with suprapubic margaret ter, diabetes, hyperlipidemia, and hypertension, presenting with a clogged tube from [facility]. T he patient is currently aphasic and unable to contribute to any meaningful conversation, so all infor mation obtained was through chart review. Apparently, the patient is currently residing in [facility] and they experience acute malfunction of the PEG tube; however, this was not imm ediately recognized, so with the lack of tube feeds, he developed severe hypoglycemia with continued administration of insulin, prompting admission to [facility]. Per chart review, the patient was a dmitted to the hospital in 12/2015 with a probable aspiration pneumonia due to oropharyngeal dysphagi a. Shortly after discharge, he was evaluated by Speech Pathology ultimately with a PEG tube placed a t an outside institution at that time. It is unknown if he has had any replacement PEG tubes placed over between then and now, but upon visualization of the PEG tube, it appears to be the original PEG tube placed in 2015. REVIEW OF SYSTEMS: The patient cannot currently contribute to any meaningful review of systems quest ioning. PAST MEDICAL HISTORY: As per HPI. PAST SURGICAL HISTORY: Left rotator cuff surgery, appendectomy, cholecystectomy, PEG tube placement, and suprapubic catheter placement. FAMILY HISTORY: Per chart review, no GI malignancies. SOCIAL HISTORY: Denies any tobacco, alcohol, or drugs. OUTPATIENT MEDICATIONS: Reviewed. ALLERGIES: No known drug allergies. PHYSICAL EXAMINATION: VITAL SIGNS: Temperature of 97.5, pulse 67, blood pressure 168/70, respiratory rate 16, and satting 97% on room air. GENERAL: The patient is lying in bed comfortably in no acute distress, alert but not oriented. NECK: Supple. No JVD noted. CARDIOVASCULAR: Regular rate and rhythm with no discernible murmurs, gallops, or rubs. RESPIRATORY: Clear to auscultation bilaterally with no discernible wheezes or rales. ABDOMEN: Normoactive bowel sounds, soft, nontender, nondistended. PEG tube is noted with significan t food debris within the tubing itself in the left upper quadrant of the abdomen. It appears to be t he original Mal[place]ot tube. EXTREMITIES: No cyanosis, clubbing, or edema. LABORATORY DATA: CBC with a white blood cell count of 13.2, hemoglobin 8.7, hematocrit 28.1, platele ts 222. Chemistry with a sodium 142, potassium 4.1, chloride 109, CO2 of 24, BUN 91, creatinine 2.6. Glucose 52. Urinalysis was consistent with a urinary tract infection. IMAGING DATA: Abdominal x-ray obtained on 12/12/2017 showing findings suggesting constipation. ASSESSMENT AND PLAN: The patient is a 72-year-old male with past medical history of narcolepsy, seiz ure disorder, stroke with encephalopathy, chronic lower back pain, obesity, end-stage renal disease o n hemodialysis, constipation, BPH, recurrent UTIs with suprapubic catheter, diabetes, hyperlipidemia, and hypertension, presenting with malfunctioning PEG tube. Malfunctioning PEG tube. The patient is presenting with PEG tube placement approximately 2 years ago and a lot enough time for maturation of the stomal tract. Upon physical examination of the tube, it appears to be the origina l PEG tube itself with significant food debris within the tube itself. Given his recent episode of h ypoglycemia as noted in the ER. He was most likely due to inadequate tube feeds in addition to dick nuation of administration of insulin as an outpatient. At this time, it would be safe to replace thi s tube with a replacement Bard PEG tube at bedside for continue tube feeds. RECOMMENDATIONS: 1. We will obtain a replacement PEG tube from the endoscopy suite and replace the PEG tube at bedsid e. 2. Once the PEG tube is in place, tube feeds can be reinitiated immediately. 3. Could consider addition of MiraLax to regimen for constipation noted on the KUB.
[2017-12-12] MEDS: Heparin 5,000 UNITS/ML VIAL SC SCH (21:37)
[2017-12-13] MEDS: Acetaminophen 325 MG TAB PER TUBE PRN (01:39)
[2017-12-13] MEDS: Dextrose 5 %-0.45 % NaCl 1,000 ML IV SCH (01:40)
[2017-12-13] MEDS: hydrALAZINE 20 MG/ML VIAL SLOW IVP PRN ×3 (04:32→23:27)
[2017-12-13 05:42] LABS: #Eosinphils 0.3 thou/uL (0.0-0.7); #Lymphocytes 2.4 thou/uL (1.20-3.40); #Monocytes 0.7 thou/uL (0.11-0.59); #Neutrophils 5.5 thou/uL (1.40-6.50); %Basophils 0.3 % (0.0-1.0); %Eosinophils 3.8 % (0.0-10.0); %Lymphocytes 26.7 % (21.0-51.0); %Monocytes 7.5 % (0.0-10.0); %Neutrophils 61.7 % (42.0-75.0); Hemoglobin 8.4 g/dL (14.0-18.0); Mean Corpuscular HGB CONC 31.6 g/dL (32.0-36.0); Mean Corpuscular Hemoglobin 29.3 pg (27.0-31.0); Mean Corpuscular Volume 92.9 fl (80.0-94.0); Mean Platelet Volume 9.6 fL (7.4-10.4); Platelet Count 192 thou/uL (130-400); RBC Distribution Width 14.6 % (11.5-14.5); Red Blood Cell (RBC) Count 2.86 mill/uL (4.70-6.10)
[2017-12-13 05:52] LABS: Albumin 3.1 g/dL (3.4-4.8); Anion Gap 11 mmol/L (10-20); BUN (Urea Nitrogen) 76 mg/dL (8.4-25.7); BUN/Creatinine Ratio 31.54; Calc. Creatinine Clearance 0 mL/min (70-130); Calcium 8.8 mg/dL (7.8-10.44); Carbon Dioxide 24 mmol/L (23-31); Chloride 111 mmol/L (98-107); Estimated GFR-MDRD 32; Glucose 95 mg/dL (80-115); Phosphorus 3.9 mg/dL (2.3-4.7); Potassium 3.8 mmol/L (3.5-5.1); Sodium 142 mmol/L (136-145)
[2017-12-13] MEDS: Pantoprazole 40 MG VIAL IVP SCH (08:57)
[2017-12-13] MEDS: Heparin 5,000 UNITS/ML VIAL SC SCH ×2 (08:57→20:08)
[2017-12-13] MEDS: Cefepime 1 GM, Admixture Fee 1 EACH in Sodium Chloride 0.9% 10 ML SLOW IVP SCH (10:13)
[2017-12-13 10:41] VITALS: BMI 26.4
--- NOTE | 2017-12-13 11:40 | PDOC.PN ---
- Subjective Encounter Start Date: 12/13/17 Encounter Start Time: 10:10 -: old records requested/rev Patient seen and examined. No new complaints. No overnight events - Objective Resuscitation Status: Resuscitation Status DNR:Do Not Resuscitate MAR Reviewed: Yes Vital Signs & Weight: Vital Signs (12 hours) Temp Pulse Resp BP BP Pulse Ox 12/13/17 08:57 98.3 F 73 16 97 12/13/17 07:13 98.3 F 73 16 179/67 H 97 12/13/17 06:15 167/70 H 12/13/17 04:35 98.3 F 75 16 183/77 H 98 12/13/17 04:32 75 183/77 H Weight Weight 174 lb 12.8 oz I&O: 12/12/17 12/13/17 12/14/17 06:59 06:59 06:59 Intake Total 1480 Output Total 2100 Balance -620 Result Diagrams: 12/13/17 04:44 12/13/17 04:44 Additional Labs: Accuchecks 12/12/17 12/12/17 12/12/17 23:58 15:53 11:11 POC Glucose 102 100 114 H Phys Exam - Physical Examination Constitutional: NAD HEENT: PERRLA, moist MMs, sclera anicteric Neck: no JVD, supple Respiratory: no wheezing, no rales, no rhonchi Cardiovascular: RRR, no significant murmur, no rub Gastrointestinal: soft, non-tender, no distention, positive bowel sounds PEG tube, suprapubic cathteter+ Musculoskeletal: no edema, pulses present right side spasticity Lymphatic: no nodes Psychiatric: normal affect Skin: no rash, normal turgor Dx/Plan (1) Acute metabolic encephalopathy due to hypoglycemia Code(s): G93.41 - METABOLIC ENCEPHALOPATHY; E16.2 - HYPOGLYCEMIA, UNSPECIFIED Status: Acute (2) Hypoglycemia associated with type 2 diabetes mellitus Code(s): E11.649 - TYPE 2 DIABETES MELLITUS WITH HYPOGLYCEMIA WITHOUT COMA Status: Acute (3) PEG tube malfunction Code(s): K94.23 - GASTROSTOMY MALFUNCTION Status: Acute (4) UTI (urinary tract infection) due to urinary indwelling catheter Code(s): T83.511A - I/I REACT D/T INDWELLING URETHRAL CATHETER, INIT; N39.0 - URINARY TRACT INFECTION, SITE NOT SPECIFIED Status: Acute Qualifiers: Indwelling urinary catheter type: cystostomy catheter (5) Anemia, normocytic normochromic Code(s): D64.9 - ANEMIA, UNSPECIFIED Status: Chronic (6) CKD (chronic kidney disease) stage 4, GFR 15-29 ml/min Code(s): N18.4 - CHRONIC KIDNEY DISEASE, STAGE 4 (SEVERE) Status: Chronic (7) Dyslipidemia Code(s): E78.5 - HYPERLIPIDEMIA, UNSPECIFIED Status: Chronic (8) H/O: CVA (cerebrovascular accident) Code(s): Z86.73 - PRSNL HX OF TIA (TIA), AND CEREB INFRC W/O RESID DEFICITS Status: Chronic (9) Hypertension Code(s): I10 - ESSENTIAL (PRIMARY) HYPERTENSION Status: Chronic (10) Oropharyngeal dysphagia Code(s): R13.12 - DYSPHAGIA, OROPHARYNGEAL PHASE Status: Chronic (11) Physical deconditioning Code(s): R53.81 - OTHER MALAISE Status: Chronic - Plan cont current plan of care, continue antibiotics * start tube feeding * DC IVF * peg tube replaced * continue cefepime * follow culture * eventual placement to SNU when stable * medication reviewed as below * symptomatic treatment. Review of Systems - Review of Systems Other: not reliable and unable to obtain as pt is mostly non verbal - Medications/Allergies Allergies/Adverse Reactions: Allergies Allergy/AdvReac Type Severity Reaction Status Date / Time No Known Allergies Allergy Verified 08/10/16 12:55 Medications: Current Medications Acetaminophen (Tylenol) 650 mg PER TUBE Q4H PRN PRN Reason: Headache/Fever or Pain Last Admin: 12/13/17 01:39 Dose: 650 mg Al Hydroxide/Mg Hydroxide (Maalox) 30 ml PER TUBE Q6H PRN PRN Reason: Heartburn or Indigestion Artificial Tears (Tears Naturale) 0 drop EA EYE PRN PRN PRN Reason: Dry Eyes Bisacodyl (Dulcolax) 10 mg DC Q24H PRN PRN Reason: Constipation Dextrose/Water (Dextrose 50%) 25 gm SLOW IVP PRN PRN PRN Reason: Hypoglycemia Glucagon (Glucagon) 1 mg IM PRN PRN PRN Reason: Hypoglycemia Guaifenesin (Robitussin Sf) 200 mg PER TUBE Q4H PRN PRN Reason: Cough Heparin Sodium (Porcine) (Heparin) 5,000 units SC BID [facility] Last Admin: 12/13/17 08:57 Dose: 5,000 units Hydralazine HCl (Apresoline) 10 mg SLOW IVP Q4H PRN PRN Reason: Systolic BP > 180 Last Admin: 12/13/17 04:32 Dose: 10 mg Dextrose/Water (D5w) 1,000 mls @ 0 mls/hr IV .Q0M PRN; As Directed PRN Reason: Hypoglycemia Cefepime HCl 1 gm/Miscellaneous Medication 1 each/ Sodium Chloride 10 mls @ 120 mls/hr SLOW IVP 1000 [facility] Last Admin: 12/13/17 10:13 Dose: 10 mls Dextrose/Sodium Chloride (D5 1/2 Ns) 1,000 mls @ 75 mls/hr IV .[id number] [facility] Last Admin: 12/13/17 01:40 Dose: 1,000 mls Insulin Human Lispro (Humalog) 0 units SC .MODERATE SLIDING SC PRN PRN Reason: Moderate Correctional Scale Insulin Human Lispro (Humalog) 0 units SC .BEDTIME SLIDING SC PRN PRN Reason: Bedtime Correctional Scale Labetalol HCl (Normodyne) 20 mg SLOW IVP Q4H PRN PRN Reason: Systolic BP > 180 Last Admin: 12/12/17 14:22 Dose: 20 mg Loperamide HCl (Imodium) 2 mg PER TUBE PRN PRN PRN Reason: Diarrhea/Loose Stools Loratadine (Claritin) 10 mg PER TUBE DAILYPRN PRN PRN Reason: Sinus Symptoms Magnesium Hydroxide (Milk Of Magnesium) 30 ml PER TUBE DAILYPRN PRN PRN Reason: Constipation Mineral Oil/White Petrolatum (Eucerin Cream) 0 gm TOP BIDPRN PRN PRN Reason: Dry Skin Ondansetron HCl (Zofran Odt) 4 mg SL Q6H PRN PRN Reason: Nausea/Vomiting Ondansetron HCl (Zofran) 4 mg IVP Q6H PRN PRN Reason: Nausea/Vomiting Pantoprazole Sodium (Protonix) 40 mg IVP DAILY [facility] Last Admin: 12/13/17 08:57 Dose: 40 mg Phenol (Chloraseptic [place] 180 Ml Bot) 0 ml PO PRN PRN PRN Reason: Sore Throat Sodium Biphosphate/Sodium Phosphate (Fleet Enema) 133 ml DC ONE PRN PRN Reason: Constipation Stop: 12/13/17 15:00 Sodium Chloride ([place] Nasal [place] 0.65%) 0 ml EA NARE QIDPRN PRN PRN Reason: Nasal Congestion
[2017-12-13] MEDS ORDERED: VANCOMYCIN IVPB PRN (14:58)
[2017-12-13] MEDS: Vancomycin HCl 750 MG in Sodium Chloride 0.9% 250 ML 250 ML IVPB SCH (17:16)
[2017-12-14] MEDS: hydrALAZINE 20 MG/ML VIAL SLOW IVP PRN ×3 (03:26→18:11)
[2017-12-14] MEDS: Labetalol HCl 100 MG/20 ML VIAL SLOW IVP PRN (04:22)
[2017-12-14] MEDS: Heparin 5,000 UNITS/ML VIAL SC SCH ×2 (08:28→20:05)
[2017-12-14] MEDS: Pantoprazole 40 MG VIAL IVP SCH (08:28)
[2017-12-14] MEDS: Cefepime 1 GM, Admixture Fee 1 EACH in Sodium Chloride 0.9% 10 ML SLOW IVP SCH (10:42)
--- NOTE | 2017-12-14 12:04 | PDOC.PN ---
- Subjective Encounter Start Date: 12/14/17 Encounter Start Time: 12:02 Patient seen and examined, no new issues per nursing staff, patient remains non verbal - Objective Resuscitation Status: Resuscitation Status DNR:Do Not Resuscitate Vital Signs & Weight: Vital Signs (12 hours) Temp Pulse Resp BP BP Pulse Ox 12/14/17 11:52 98.3 F 73 18 175/68 H 96 12/14/17 08:28 98.3 F 75 18 97 12/14/17 07:35 98.3 F 72 18 189/75 H 97 12/14/17 05:48 179/68 H 12/14/17 04:22 75 182/70 H 12/14/17 04:00 98.3 F 75 18 183/70 H 98 12/14/17 03:26 75 183/70 H Weight Admit Weight 174 lb 12.8 oz Weight 174 lb 12.8 oz I&O: 12/13/17 12/14/17 12/15/17 06:59 06:59 06:59 Intake Total 1480 2936 Output Total 2100 1999 Balance -620 936 Result Diagrams: 12/13/17 04:44 12/13/17 04:44 Additional Labs: Accuchecks 12/14/17 12/14/17 12/13/17 05:50 00:08 18:14 POC Glucose 165 H 165 H 144 H 12/13/17 11:56 POC Glucose 97 Phys Exam - Physical Examination Constitutional: NAD HEENT: PERRLA, moist MMs, sclera anicteric Neck: no nodes, no JVD, supple Respiratory: no wheezing, no rales, no rhonchi Cardiovascular: RRR, no significant murmur, no rub Gastrointestinal: soft, non-tender, no distention +PEG in place Musculoskeletal: pulses present, edema present (trace B/L) Dx/Plan (1) PEG tube malfunction Code(s): K94.23 - GASTROSTOMY MALFUNCTION Status: Acute (2) CKD (chronic kidney disease) stage 4, GFR 15-29 ml/min Code(s): N18.4 - CHRONIC KIDNEY DISEASE, STAGE 4 (SEVERE) Status: Chronic (3) Dyslipidemia Code(s): E78.5 - HYPERLIPIDEMIA, UNSPECIFIED Status: Chronic (4) H/O: CVA (cerebrovascular accident) Code(s): Z86.73 - PRSNL HX OF TIA (TIA), AND CEREB INFRC W/O RESID DEFICITS Status: Chronic (5) Physical deconditioning Code(s): R53.81 - OTHER MALAISE Status: Chronic (6) Seizure disorder Code(s): G40.909 - EPILEPSY, UNSP, NOT INTRACTABLE, WITHOUT STATUS EPILEPTICUS Status: Chronic - Plan * PEG tube exchanged, will use PEG tube for next 24 hours * resume home BP meds * continue all other medical plan of care * DC plans once PEG tube functioning and cleared by GI * DC plans in 24-48hrs * no family at beside
[2017-12-14] MEDS: Vancomycin HCl 750 MG in Sodium Chloride 0.9% 250 ML 250 ML IVPB SCH (16:48)
[2017-12-14] MEDS: HumaLOG 300 UNITS/3 ML VIAL SC PRN (19:22)
[2017-12-14] MEDS: Isosorbide Dinitrate 20 MG TAB PER TUBE SCH (20:04)
[2017-12-14] MEDS: cloNIDine 0.1 MG TAB PER TUBE SCH (20:05)
[2017-12-14] MEDS: Acetaminophen 325 MG TAB PER TUBE PRN (20:11)
[2017-12-15] MEDS: hydrALAZINE 20 MG/ML VIAL SLOW IVP PRN (03:36)
[2017-12-15 05:45] LABS: #Eosinphils 0.3 thou/uL (0.0-0.7); #Lymphocytes 2.2 thou/uL (1.20-3.40); #Monocytes 0.8 thou/uL (0.11-0.59); #Neutrophils 5.4 thou/uL (1.40-6.50); %Eosinophils 3.9 % (0.0-10.0); %Monocytes 9.5 % (0.0-10.0); %Neutrophils 61.5 % (42.0-75.0); Hemoglobin 8.1 g/dL (14.0-18.0); Mean Corpuscular HGB CONC 32.1 g/dL (32.0-36.0); Mean Corpuscular Volume 93.5 fl (80.0-94.0); Mean Platelet Volume 9.8 fL (7.4-10.4); Platelet Count 176 thou/uL (130-400); RBC Distribution Width 14.8 % (11.5-14.5); Red Blood Cell (RBC) Count 2.69 mill/uL (4.70-6.10); White Blood Cell (WBC) Count 8.7 thou/uL (4.8-10.8)
[2017-12-15 06:10] LABS: ALT (SGPT) 33 U/L (8-55); AST (SGOT) 23 U/L (5-34); Alkaline Phosphatase 135 U/L (40-150); Anion Gap 9 mmol/L (10-20); BUN (Urea Nitrogen) 70 mg/dL (8.4-25.7); Bilirubin, Total 0.2 mg/dL (0.2-1.2); Calc. Creatinine Clearance 32 mL/min (70-130); Calcium 8.7 mg/dL (7.8-10.44); Carbon Dioxide 24 mmol/L (23-31); Chloride 112 mmol/L (98-107); Estimated GFR-MDRD 32; Globulin 4.8 g/dL (2.4-3.5); Glucose 166 mg/dL (80-115); Potassium 3.4 mmol/L (3.5-5.1); Protein, Total 7.8 g/dL (5.8-8.1); Sodium 142 mmol/L (136-145)
[2017-12-15] MEDS: HumaLOG 300 UNITS/3 ML VIAL SC PRN ×2 (06:48→16:16)
[2017-12-15] MEDS: Pantoprazole 40 MG VIAL IVP SCH (09:07)
[2017-12-15] MEDS: cloNIDine 0.1 MG TAB PER TUBE SCH (09:07)
[2017-12-15] MEDS: Isosorbide Dinitrate 20 MG TAB PER TUBE SCH (09:07)
[2017-12-15] MEDS: Cefepime 1 GM, Admixture Fee 1 EACH in Sodium Chloride 0.9% 10 ML SLOW IVP SCH (09:07)
[2017-12-15] MEDS: Heparin 5,000 UNITS/ML VIAL SC SCH (09:08)
[2017-12-15] MEDS ORDERED: cloNIDine 0.2mg/24 Hour PATCH TD SCH (10:30)
[2017-12-15 15:45] VITALS: BP 169/72; TEMP 98.1
--- NOTE | 2017-12-15 21:07 | DIS ---
DATE OF ADMISSION: 12/12/2017 DATE OF DISCHARGE: 12/15/2017 ADMITTING DIAGNOSIS: Percutaneous endoscopic gastrostomy tube malfunction; hypertension; hyperlipide chris; history of cerebrovascular accident; seizure disorder; constipation; chronic kidney disease, sta ge 4; and diabetes mellitus, type 2. DISCHARGE DIAGNOSES: Dysphagia; percutaneous endoscopic gastrostomy tube malfunction, percutaneous e ndoscopic gastrostomy tube replaced; chronic kidney disease, stage 4, stable; urinary tract infection ; seizure disorder, stable; constipation, stable; hypertension, stable; diabetes mellitus, type 2, st able. HOSPITAL COURSE: This is a 72-year-old male, who was admitted to the hospital from [facility] for PEG tube malfunction. Patient was admitted to the Internal Medicine team, was found to have a UTI. Cultures were received on the final date of discharge. The patient also had his PEG tube exchanged and was monitored for 24 hours to maintain function of PEG tube. Patient at point in time at discharge was cleared by GI as well as Internal Medicine. The patient was given prescriptio n for Keflex 250 to be taken twice a day for the next 7 days for his UTI. Patient's condition at the point in time of discharge was stable, and he was to go back to his snf for further managem ent and care. DISPOSITION: To the snf. MEDICATIONS: See MAR. CONDITION: Stable. PROGNOSIS: Poor. FOLLOWUP: PCP in 5-7 days for further management and care. DIET: PEG tube feedings. ACTIVITY: As tolerated with assistance. Case and plan discussed with nursing staff. No family at bedside.
== END 2017-12-15 18:10 | DRG 393 ==
LOC: ERS 03:14 → SURG A 06:30
PROVIDERS: ADMIT Internal Medicine; ATTEND Internal Medicine
PROC: 0D20XUZ Change Feeding Device in Upper Intestinal Tract, External Approach (ICD-10-PCS; principal; 2017-12-12)
DX: K94.23 Gastrostomy malfunction (principal); G93.41 Metabolic encephalopathy; R40.2223 Coma scale, best verbal response, incomprehensible words, at hospital admission; L89.302 Pressure ulcer of unspecified buttock, stage 2; E46 Unspecified protein-calorie malnutrition; N18.4 Chronic kidney disease, stage 4 (severe); N17.9 Acute kidney failure, unspecified; E11.22 Type 2 diabetes mellitus with diabetic chronic kidney disease; E11.649 Type 2 diabetes mellitus with hypoglycemia without coma; I69.351 Hemiplegia and hemiparesis following cerebral infarction affecting right dominant side; N39.0 Urinary tract infection, site not specified; T83.510A Infection and inflammatory reaction due to cystostomy catheter, initial encounter; Z68.25 Body mass index [BMI] 25.0-25.9, adult; R13.12 Dysphagia, oropharyngeal phase; Z66 Do not resuscitate; I12.9 Hypertensive chronic kidney disease with stage 1 through stage 4 chronic kidney disease, or unspecified chronic kidney disease; G40.909 Epilepsy, unspecified, not intractable, without status epilepticus; G47.419 Narcolepsy without cataplexy; I69.391 Dysphagia following cerebral infarction; N40.0 Benign prostatic hyperplasia without lower urinary tract symptoms; Z74.01 Bed confinement status; E78.5 Hyperlipidemia, unspecified; Z79.4 Long term (current) use of insulin; D64.9 Anemia, unspecified; R40.2353 Coma scale, best motor response, localizes pain, at hospital admission; R40.2143 Coma scale, eyes open, spontaneous, at hospital admission
CPT/HCPCS: 36415; 36416; 74018; 80048; 80053; 80069; 80202; 81003; 81015; 85025; 87040; 87077; 87086; 87149; 96361; 96365; 96375; C9113; J0360; J0692; J0696; J1644; J2543; J3370; J7050

== ENCOUNTER 2017-12-26 22:14 | Inpatient (IN) | payer MEDICARE, MEDICAID ==
[2017-12-26] MEDS ORDERED: Furosemide 40 MG/4 ML VIAL ONE (22:35)
[2017-12-26] MEDS ORDERED: Aspirin 300 MG Suppository ONE (22:35)
[2017-12-26] MEDS ORDERED: Nitroglycerin 0.4 MG TAB (25 Tab Bottle) ONE (22:35)
[2017-12-26 23:00] LABS: Bilirubin Negative (Negative); Blood, Urine Negative (Negative); Clarity CLOUDY (Clear); Glucose, Urine (Dipstick) Negative (Negative); Leukocyte Large (Negative); Nitrite Negative (Negative); Protein, Urine (Dipstick) 100 mg/dL (Neg-Trace); Specific Gravity, Urine 1.015 (1.002-1.036); Urobilinogen 0.2 mg/dL (0.2-1.0)
[2017-12-26 23:01] LABS: Bacteria/HPF 4+ HPF (None Seen); Hyaline Casts/LPF 7-10 HYALINE CAST LPF (0-3 Hyaline); Pathc Cast-AUWi Flag 1.01 (0-2.49); Squamous Epithelial None Seen HPF (0-3)
[2017-12-26 23:11] LABS: #Eosinphils 0.1 thou/uL (0.0-0.7); #Lymphocytes 1.6 thou/uL (1.20-3.40); #Monocytes 1.1 thou/uL (0.11-0.59); %Basophils 0.1 % (0.0-1.0); %Eosinophils 0.8 % (0.0-10.0); %Lymphocytes 11.7 % (21.0-51.0); %Monocytes 8.2 % (0.0-10.0); %Neutrophils 79.2 % (42.0-75.0); Hemoglobin 7.9 g/dL (14.0-18.0); Mean Corpuscular HGB CONC 31.4 g/dL (32.0-36.0); Mean Corpuscular Hemoglobin 28.5 pg (27.0-31.0); Mean Corpuscular Volume 90.5 fl (80.0-94.0); Mean Platelet Volume 10.4 fL (7.4-10.4); Platelet Count 181 thou/uL (130-400); Red Blood Cell (RBC) Count 2.78 mill/uL (4.70-6.10); White Blood Cell (WBC) Count 13.9 thou/uL (4.8-10.8)
--- NOTE | 2017-12-26 23:16 | RAD ---
PORTABLE AP CHEST X-RAY: 12/26/2017 HISTORY: Dyspnea. Crackles noted on exam. COMPARISON: 09/24/2017 FINDINGS: The cardiac silhouette is magnified by projection but does appear mildly enlarged. There are increas ed interstitial densities at each lung base, with slightly greater patchy parenchymal changes at the left lung base and left mid lung zone. These interstitial densities were present at each lung base o n the prior exam and, while some of these interstitial densities may be related to chronic interstiti al lung changes, greater patchy parenchymal changes at the left lung base are worrisome for pneumonia . The pulmonary vasculature is within normal limits. Degenerative changes are seen in the spine. N o other interval change. IMPRESSION: Findings suggestive of pneumonia/pneumonitis at the left lung base, in addition to mild bibasilar chr onic interstitial lung changes. Followup to complete resolution is recommended. POS: RUSTY
[2017-12-26 23:27] LABS: ALT (SGPT) 63 U/L (8-55); AST (SGOT) 49 U/L (5-34); Albumin 3.1 g/dL (3.4-4.8); Alkaline Phosphatase 192 U/L (40-150); Anion Gap 14 mmol/L (10-20); Bilirubin, Total 0.2 mg/dL (0.2-1.2); CK (CPK) 93 U/L (30-200); Calc. Creatinine Clearance 0 mL/min (70-130); Calcium 8.4 mg/dL (7.8-10.44); Carbon Dioxide 25 mmol/L (23-31); Chloride 93 mmol/L (98-107); Estimated GFR-MDRD 21; Globulin 5.1 g/dL (2.4-3.5); Glucose 171 mg/dL (80-115); Potassium 3.8 mmol/L (3.5-5.1); Protein, Total 8.2 g/dL (5.8-8.1); Sodium 128 mmol/L (136-145)
[2017-12-26 23:38] LABS: BUN (Urea Nitrogen) 132 mg/dL (8.4-25.7)
[2017-12-26] MEDS ORDERED: Milk Of Magnesia 30 ML UDCUP PO PRN (23:58)
[2017-12-26] MEDS ORDERED: Acetaminophen 325 MG TAB PO PRN (23:58)
[2017-12-27 00:12] LABS: CKMB 2.1 ng/mL (0-6.6)
[2017-12-27] MEDS ORDERED: Albuterol Sulfate 2.5 mg/3 ml Neb NEB PRN (00:22)
[2017-12-27 00:24] LABS: Troponin I 0.041 ng/mL (< 0.028)
[2017-12-27] MEDS ORDERED: Dextrose 50% Abboject 50 ML SYRINGE SLOW IVP PRN (00:29)
[2017-12-27] MEDS ORDERED: HumaLOG 300 UNITS/3 ML VIAL SC PRN (00:29)
[2017-12-27] MEDS ORDERED: Dextrose 5% in Water 1,000 ML IV PRN (00:29)
[2017-12-27] MEDS ORDERED: Nitroglycerin 0.4 MG TAB (25 Tab Bottle) SL PRN (00:38)
[2017-12-27] MEDS ORDERED: Ondansetron HCl/PF 4 MG/2 ML Vial IVP PRN (01:14)
[2017-12-27] MEDS ORDERED: Ondansetron ODT 4 MG TAB SL PRN (01:14)
[2017-12-27] MEDS ORDERED: Vancomycin HCl 1 GM in Premix Bag 1 BAG IVPB SCH (02:00)
--- NOTE | 2017-12-27 02:07 | HP ---
PRIMARY CARE PHYSICIAN: Dr. Indy Mcfarlane. PRESENTING COMPLAINT: Shortness of breath. HISTORY OF PRESENT ILLNESS: Mr. Richard Troy is a 72-year-old male, resident at [facility] who was brought to the emergency room today on account of shortness of breath. His oxygen saturation was found to be in the 70s and he has marked shortness of breath so he was brought to the hospital. There were no complaints of fevers, chills, chest pain. The patient is mainly nonfebrile at baseline as he has severe dementia and usually communicates by head movements. This, therefore, limits history from the patient. At the emergency room, he was immediately started on oxygen supplementation with improvement in his oxygen saturation. Blood cultures were taken. Physical examination reveals crackles bilateral lungs, lower extremity edema and chest x-ray showed findings suggestive of pneumonia in the left lung base in addition to mild bibasilar chronic interstitial lung changes. Blood cultures were taken and he was started on IV vancomycin and Levaquin, in addition to IV furosemide. On arrival, his blood pressure was also markedly high and nitro-paste was placed with improvement in a systolic blood pressure to 150s. EKG showed no signs of acute ischemia. The patient was then admitted for acute hypoxic respiratory failure, likely due to left lower lobe pneumonia as well as what seems to be mild CHF exacerbation. PAST MEDICAL HISTORY: Type 2 diabetes mellitus, hypertension, CVA history, oropharyngeal dysphagia with PEG tube, CKD stage 4, recurrent UTIs, narcolepsy, seizure disorder, chronic constipation, dementia, BPH. PAST SURGICAL HISTORY: Appendectomy, cholecystectomy, rotator cuff injury, PEG tube placement, suprapubic catheter placement. PAST PSYCHIATRIC HISTORY: Negative. ALLERGIES: None. FAMILY HISTORY: Reviewed and noncontributory. SOCIAL HISTORY: No history of tobacco abuse, alcohol intake, or illicit drug use. HOME MEDICATIONS: Acetaminophen 650 mg per tube q.6 p.r.n., aluminum magnesium hydroxide 30 mL per tube q.i.d. p.r.n., amlodipine 10 mg per tube daily, aspirin 81 mg daily, atorvastatin 40 mg daily, calcium carbonate 500 mg q.i.d., Keflex 250 mg b.i.d. , clonidine 0.1 mg q.6 hours p.r.n., clopidogrel 75 mg daily, ferrous sulfate 7.5 mg daily, furosemide 40 mg daily, guaifenesin/codeine phosphate 200 mg q.4 hours, hydralazine 100 mg q.i.d., insulin detemir 50 units at bedtime, insulin regular unclear dose, ipratropium/albuterol sulfate 3 mL nebulizer q.i.d., isosorbide dinitrate 60 mg b.i.d., Keppra 40 mg by tube, magnesium hydroxide 30 mL b.i.d., oxybutynin 5 mg b.i.d., sodium bicarbonate 650 mg b.i.d. REVIEW OF SYSTEMS: Unable to obtain due to patient's advanced dementia. PHYSICAL EXAMINATION: VITAL SIGNS: Oxygen saturation 97% via nasal cannula, pulse rate 85, respiratory rate 20, blood pressure 157/96. GENERAL: Not in acute distress, lying in bed with nasal cannula in situ. HEENT: Normocephalic, atraumatic. Not pale, anicteric. Moist mucous membranes. RESPIRATORY: Reduced breath sounds bilaterally. No wheezes or rales. CARDIOVASCULAR: S1 and S2 only. Regular rate and rhythm. No murmurs, rubs, or gallops. NECK: No JVD. EXTREMITIES: 1+ lower extremity edema. ABDOMEN: Soft, nontender, nondistended. Bowel sounds normoactive. PEG tube in place. No hepatosplenomegaly. NEUROLOGIC: Alert, but unable to cooperate with exam. SKIN: Well perfused. No rashes or lesions. MUSCULOSKELETAL: 1+ edema. PSYCHIATRIC: Unable to cooperate. LABORATORY DATA: Significant for hyponatremia of 128, elevated BUN/creatinine of 132/3.54, BNP of 314 (increased from September where it was 92), WBC 13.9, hemoglobin 7.9. Urinalysis showed leukocyte esterase, which increased number of wbc's, 4+ bacteria, but no nitrites. Blood cultures collected and pending. EKG: No signs of acute ischemia. Chest x-ray as reported in the HPI. ASSESSMENT: 1. Acute hypoxic respiratory failure. 2. Hypertensive urgency. 3. Acute kidney injury on chronic kidney disease. 4. Fluid overload. 5. Healthcare-associated pneumonia. 6. Urinary tract infection. PLAN: Blood cultures have been taken. Patient will be started on IV vancomycin on levofloxacin. We will follow up on blood cultures. We will also place him on DuoNeb and albuterol nebulizers p.r.n. He has received 1 dose of IV furosemide in the emergency room. We will monitor renal function as his acute kidney injury might be due to cardiorenal syndrome. Keep in mind his elevation in BNP. We will give an additional dose of IV furosemide and consider Cardiology consults. We will also order an echocardiogram. Last echo was done in 02/2015 and this revealed an EF of 50-55% with mild MR, TR, mild left atrial enlargement and early diastolic dysfunction. We will also resume his home medications once they have been confirmed. Blood pressure has been relatively well controlled with the nitro-paste. The patient is DNR and is confirmed with his spouse Ms. Gaurav Troy. Critical Care time: 35 minutes. TORIE
[2017-12-27 02:38] LABS: #Basophils 0.1 thou/uL (0.0-0.2); #Eosinphils 0.2 thou/uL (0.0-0.7); #Lymphocytes 1.5 thou/uL (1.20-3.40); #Monocytes 1.1 thou/uL (0.11-0.59); #Neutrophils 9.4 thou/uL (1.40-6.50); %Basophils 0.4 % (0.0-1.0); %Eosinophils 1.4 % (0.0-10.0); %Monocytes 9.1 % (0.0-10.0); %Neutrophils 77.1 % (42.0-75.0); Hemoglobin 7.6 g/dL (14.0-18.0); Mean Corpuscular HGB CONC 33.1 g/dL (32.0-36.0); Mean Corpuscular Hemoglobin 30.6 pg (27.0-31.0); Mean Corpuscular Volume 92.6 fl (80.0-94.0); Mean Platelet Volume 11.1 fL (7.4-10.4); Platelet Count 171 thou/uL (130-400); Red Blood Cell (RBC) Count 2.49 mill/uL (4.70-6.10); White Blood Cell (WBC) Count 12.3 thou/uL (4.8-10.8)
[2017-12-27 02:59] LABS: Troponin I 0.048 ng/mL (< 0.028)
[2017-12-27 03:05] LABS: ALT (SGPT) 55 U/L (8-55); AST (SGOT) 43 U/L (5-34); Albumin 2.9 g/dL (3.4-4.8); Alkaline Phosphatase 171 U/L (40-150); Anion Gap 15 mmol/L (10-20); Bilirubin, Total 0.2 mg/dL (0.2-1.2); Calc. Creatinine Clearance 24 mL/min (70-130); Calcium 8.5 mg/dL (7.8-10.44); Carbon Dioxide 24 mmol/L (23-31); Chloride 95 mmol/L (98-107); Estimated GFR-MDRD 21; Globulin 4.9 g/dL (2.4-3.5); Glucose 121 mg/dL (80-115); Potassium 4.7 mmol/L (3.5-5.1); Protein, Total 7.8 g/dL (5.8-8.1); Sodium 129 mmol/L (136-145)
[2017-12-27 03:18] LABS: BUN (Urea Nitrogen) 137 mg/dL (8.4-25.7)
[2017-12-27] MEDS ORDERED: Acetaminophen 650 MG/20.3 ML UDCUP PER TUBE PRN (04:05)
[2017-12-27] MEDS ORDERED: Milk Of Magnesia 30 ML UDCUP PER TUBE PRN (04:05)
[2017-12-27] MEDS ORDERED: Sodium Bicarbonate Tab 325 MG TAB PER TUBE PRN (04:05)
[2017-12-27] MEDS ORDERED: cloNIDine 0.1 MG TAB PER TUBE PRN (04:05)
[2017-12-27] MEDS ORDERED: Calcium Carbonate 500 MG ChewTAB PER TUBE PRN (04:05)
[2017-12-27] MEDS ORDERED: guaiFENesin/Codeine Phosphate 200 mg/20 mg 10 ml UD Cup PER TUBE PRN (04:05)
[2017-12-27] MEDS ORDERED: Mag-Al 1200 mg/1200 mg/30 ML UDCUP PER TUBE PRN (04:05)
[2017-12-27 05:44] LABS: Troponin I 0.067 ng/mL (< 0.028)
[2017-12-27] MEDS ORDERED: Furosemide 40 MG/4 ML VIAL SLOW IVP SCH (06:00)
[2017-12-27] MEDS: Docusate Sodium 100 MG/10 ML UDCUP PER TUBE SCH ×2 (08:36→20:29)
[2017-12-27] MEDS: Oxybutynin 5 MG TAB PER TUBE SCH ×2 (08:37→20:29)
[2017-12-27] MEDS: levETIRAcetam 500 mg/5 ml Oral Solution PER TUBE SCH ×2 (08:38→20:28)
[2017-12-27] MEDS: hydrALAZINE 25 MG TAB PER TUBE SCH ×4 (08:38→20:29)
[2017-12-27] MEDS: Isosorbide Dinitrate 20 MG TAB PER TUBE SCH ×2 (08:38→20:30)
[2017-12-27] MEDS: Heparin 5,000 UNITS/ML VIAL SC SCH ×3 (08:39→20:38)
[2017-12-27] MEDS: Amlodipine 10 MG TAB PER TUBE SCH (08:39)
[2017-12-27] MEDS: Clopidogrel Bisulfate 75 MG TAB PER TUBE SCH (08:39)
[2017-12-27] MEDS ORDERED: [UNRECOGNIZED DRUG - OTHER] PO SCH (09:00)
[2017-12-27] MEDS ORDERED: AMINO ACIDS PO SCH (09:00)
[2017-12-27] MEDS ORDERED: PROTEIN HYDROLYS PO SCH (09:00)
--- NOTE | 2017-12-27 11:27 | PDOC.PN ---
- Subjective Encounter Start Date: 12/27/17 Encounter Start Time: 11:25 CC: dyspnea sub: Pt is lethargic. Pt was seen by hospitalist early this am - Objective Vital Signs & Weight: Vital Signs (12 hours) Temp Pulse Resp BP BP Pulse Ox 12/27/17 11:24 98.6 F 69 20 137/51 L 100 12/27/17 10:43 69 20 100 12/27/17 08:39 76 149/51 H 12/27/17 08:38 73 149/51 H 12/27/17 07:58 98.5 F 66 22 H 12/27/17 07:49 98.5 F 66 22 H 155/54 H 100 12/27/17 07:20 70 18 100 12/27/17 04:15 98.3 F 77 18 155/55 H 95 12/27/17 03:12 73 16 100 12/27/17 02:36 98 F 82 16 12/27/17 01:51 82 16 177/51 H 100 Weight Admit Weight 191 lb 9.6 oz Weight 191 lb 9.6 oz I&O: 12/26/17 12/27/17 12/28/17 06:59 06:59 06:59 Output Total 500 Balance -500 Result Diagrams: 12/27/17 02:28 12/27/17 02:28 Additional Labs: Accuchecks 12/27/17 05:34 POC Glucose 110 Phys Exam - Physical Examination Constitutional: NAD lethargic HEENT: moist MMs Neck: no JVD positive crackles, diminished at bases, no rhonchi Cardiovascular: RRR, no significant murmur, no rub Gastrointestinal: soft, non-tender no guarding, no rebound tenderness Musculoskeletal: no edema Neurological: non-focal lethargic, but arousable, not following all commands Skin: no rash Dx/Plan - Plan * . Pt is 89 yrs old male 1. Acute Hypoxic respiratory failure 2. Pulmonary edema 3. ADAM over CKD 4. HTN 5. Possible pneumonia Plan: 1. Will start lasix 40mg iv q12hrs 2. Cradio, pulmonary and nephrology on board. Management per them 3. Continue bp meds 4. Continue iv antibiotics 5. Check ABG case d/w pt & Pt
[2017-12-27] MEDS: Furosemide 40 MG/4 ML VIAL SLOW IVP SCH (14:14)
--- NOTE | 2017-12-27 16:00 | CON ---
DATE OF CONSULTATION: 12/27/2017 HISTORY OF PRESENT ILLNESS: Mr. Richard Troy is a 72-year-old male who lives in [facility]. The history is obtained from the . He has dementia. He was noted to be tachypneic and hypoxic and was admitted to the intermediate care unit. He is nonverbal. That is his baseline according to the . He appears totally comfortable at this time. He was diagnosed with pneumonia. PAST MEDICAL HISTORY: Remarkable for; 1. Diabetes. 2. Hypertension. 3. Cerebrovascular accident. 4. Oropharyngeal dysphagia with a PEG placed a year ago according to the . 5. Chronic kidney disease. 6. History of a seizure disorder. 7. History of dementia. 8. History of BPH. 9. History of an appendectomy. 10. History of a cholecystectomy. 11. History of rotator cuff surgery. 12. History of suprapubic catheter placed. FAMILY HISTORY: Non Contributory SOCIAL HISTORY: He is a nonsmoker, nondrinker. He does use drugs. ALLERGIES: There are no reported drug allergies. MEDICATIONS: Have been reviewed. REVIEW OF SYSTEMS: Not obtainable since he is nonverbal. PHYSICAL EXAMINATION: GENERAL: Patient is in custodial with dementia. VITAL SIGNS: He is afebrile, heart rate 60, blood pressure 135/46, respiratory 20, oximetry is 100% on 3 liters and blood pressure is 137/51. HEENT: Pupils are equal. Sclerae is anicteric. NECK: Supple. LUNGS: Remarkable for rhonchi at his left base. HEART: Regular rhythm. S1 and S2 are normal. ABDOMEN: Soft and nontender. EXTREMITIES: With plantar flexion contractures. Has chronic stasis changes. IMAGING DATA: Chest radiograph shows an alveolar infiltrate in his left base. IMPRESSION: 1. Probable aspiration pneumonia. 2. Advanced dementia. 3. Status post percutaneous endoscopic gastrostomy and suprapubic catheter. PLAN: He is stable through the night. He can be transferred to a medical bed. He is a do not resuscitate patient. This is 50 minute consult, of which greater than 50% was spent on the unit coordinating care. TORIE
[2017-12-27] MEDS: Atorvastatin Calcium 40 MG TAB PER TUBE SCH (20:30)
--- NOTE | 2017-12-27 23:36 | CON ---
DATE OF CONSULTATION: 12/27/2017 HISTORY OF PRESENT ILLNESS: Richard Troy is a 72-year-old black male, jail resident, who has had previous strokes and is essentially bedridden. At [facility], he was found to have O2 sats in the 70% range and was markedly short of breath, was brought to the hospital. Apparently, he did not complain of any cough, fever or chest pain. Blood cultures were taken in the emergency room. He was started on IV vancomycin and Levaquin as well as IV furosemide. Mr. Troy is unable to give any history. PAST MEDICAL HISTORY: Diabetes, hypertension, history of CVA, PEG tube placement, chronic kidney disease stage 4, recurrent UTIs, narcolepsy, seizure disorder, dementia and BPH. OPERATIONS: Appendectomy, cholecystectomy, rotator cuff surgery, PEG tube placement and suprapubic urine catheter placement. MEDICATIONS: Include acetaminophen p.r.n., Maalox p.r.n., amlodipine 10 mg daily, aspirin 81 daily, atorvastatin 40 daily, Tums 500 mg q.i.d. p.r.n., Catapres p.r.n., Plavix 75 mg daily, ferrous sulfate 7.5 mL per tube daily, furosemide 40 mg daily, hydralazine 100 mg q.i.d., Humulin R, DuoNeb p.r.n., isosorbide dinitrate 60 b.i.d., Keppra 500 mg b.i.d., and oxybutynin 5 mg b.i.d. ALLERGIES: None. SOCIAL HISTORY: Unobtainable. FAMILY HISTORY: Unobtainable. REVIEW OF SYSTEMS: Unobtainable. PHYSICAL EXAMINATION: VITAL SIGNS: Blood pressure 135/46 and pulse is 66. HEENT: PERRL. NECK: Supple. CHEST: Reveals crackles at the bases. CARDIOVASCULAR: S1, S2 normal, without any S3, S4 or murmurs. ABDOMEN: Normal bowel sounds, without tenderness, organomegaly. EXTREMITIES: Revealed trace pretibial edema. NEUROLOGIC: The patient will move the extremities to command; however, is relatively aphasic and does not give any verbal answers. SKIN: Warm and dry. LABORATORY AND IMAGING DATA: EKG reveals normal sinus rhythm with nonspecific ST segment changes. Hemoglobin 10.6, hematocrit 23.1, white count 12,300 and platelets 171,000. Sodium 129, potassium 4.7, chloride 95, carbon dioxide 24, BUN 137, creatinine 3.50, glucose 121, AST 43, alkaline phosphatase 171. BNP 314.6, troponin I 0.67. Chest x-ray revealed mild probable left lung base pneumonia with bibasilar chronic interstitial changes. IMPRESSION: 1. Shortness of breath, probably secondary to pneumonia, chronic bedridden state. 2. Chronic kidney disease with creatinine increasing from 2.44 to 3.54 over approximately 10 days. 3. Chronically elevated Troponin I, which probably is due to his renal insufficiency and demand ischemia. 4. Hypertension. 5. Diabetes. 6. History of cerebrovascular accident. 7. Hyperlipidemia. 8. Seizure disorder. 9. Dementia. 10. Benign prostatic hypertrophy. 11. The patient is DNR. RECOMMENDATIONS: Echocardiogram will be performed to assess left ventricular function. In 02/2015, he had an echocardiogram, which revealed ejection fraction of 50% to 55%. MTDD
[2017-12-28 05:25] LABS: #Eosinphils 0.1 thou/uL (0.0-0.7); #Lymphocytes 1.3 thou/uL (1.20-3.40); #Monocytes 1.1 thou/uL (0.11-0.59); #Neutrophils 5.7 thou/uL (1.40-6.50); %Basophils 0.4 % (0.0-1.0); %Eosinophils 0.6 % (0.0-10.0); %Lymphocytes 16.5 % (21.0-51.0); %Monocytes 13.1 % (0.0-10.0); %Neutrophils 69.3 % (42.0-75.0); Anion Gap 13 mmol/L (10-20); Calc. Creatinine Clearance 23 mL/min (70-130); Calcium 8.2 mg/dL (7.8-10.44); Carbon Dioxide 26 mmol/L (23-31); Chloride 94 mmol/L (98-107); Estimated GFR-MDRD 20; Glucose 157 mg/dL (80-115); Hemoglobin 6.7 g/dL (14.0-18.0); Mean Corpuscular HGB CONC 33.2 g/dL (32.0-36.0); Mean Corpuscular Hemoglobin 30.3 pg (27.0-31.0); Mean Corpuscular Volume 91.3 fl (80.0-94.0); Mean Platelet Volume 10.5 fL (7.4-10.4); Platelet Count 146 thou/uL (130-400); Potassium 3.9 mmol/L (3.5-5.1); RBC Distribution Width 14.8 % (11.5-14.5); Red Blood Cell (RBC) Count 2.19 mill/uL (4.70-6.10); Sodium 129 mmol/L (136-145); White Blood Cell (WBC) Count 8.2 thou/uL (4.8-10.8)
[2017-12-28] MEDS: Furosemide 40 MG/4 ML VIAL SLOW IVP SCH ×2 (05:30→14:31)
[2017-12-28 05:37] LABS: BUN (Urea Nitrogen) 138 mg/dL (8.4-25.7)
[2017-12-28] MEDS ORDERED: Vancomycin HCl 750 MG in Sodium Chloride 0.9% 250 ML 250 ML IVPB SCH (06:00)
[2017-12-28] MEDS ORDERED: Cefepime 2 GM in Sodium Chloride 0.9% 100 ML IVPB SCH (09:00)
[2017-12-28] MEDS ORDERED: Epoetin (ESRD) 20,000 UNITS/ML SC SCH (09:00)
[2017-12-28] MEDS: Amlodipine 10 MG TAB PER TUBE SCH (09:07)
[2017-12-28] MEDS: Oxybutynin 5 MG TAB PER TUBE SCH ×3 (09:07→22:29)
[2017-12-28] MEDS: Isosorbide Dinitrate 20 MG TAB PER TUBE SCH ×3 (09:07→22:28)
[2017-12-28] MEDS: hydrALAZINE 25 MG TAB PER TUBE SCH ×5 (09:08→22:27)
[2017-12-28] MEDS: Heparin 5,000 UNITS/ML VIAL SC SCH ×3 (09:08→20:53)
[2017-12-28] MEDS: Clopidogrel Bisulfate 75 MG TAB PER TUBE SCH (09:08)
[2017-12-28] MEDS: Docusate Sodium 100 MG/10 ML UDCUP PER TUBE SCH ×3 (09:08→22:27)
[2017-12-28] MEDS: levETIRAcetam 500 mg/5 ml Oral Solution PER TUBE SCH ×3 (09:09→22:29)
[2017-12-28] MEDS: Cefepime 2 GM, Syringe 2.5 ML in Sodium Chloride 0.9% 10 ML SLOW IVP SCH ×2 (09:14→20:54)
--- NOTE | 2017-12-28 11:46 | CON ---
DATE OF CONSULTATION: 12/28/2017 RENAL MEDICINE HISTORY OF PRESENT ILLNESS: Mr. Troy is a 72-year-old black male with known history of chronic hermila l failure, history of CVA, ? of dementia and admitted for acute respiratory failure. He was found to be in CHF exacerbation with possible aspiration pneumonia. We are now being consulted for his chron ic renal failure. REVIEW OF SYSTEMS: Not obtainable since the patient is nonverbal. MEDICATIONS: DuoNeb q.4, aspirin 81 mg every day, Lipitor 40 mg at bedtime, Tums p.r.n., cefepime cu rrently 2 grams IV q.12 hours, Catapres p.r.n., clopidogrel 75 mg once a day, Epogen 7,500 units subc u day, furosemide 40 mg IV q.12, Humalog sliding scale, p.r.n. lactulose, Keppra 500 mg p.o. b.i.d., vancomycin 750 mg IV q.24 hours. PAST MEDICAL HISTORY: 1. Status post cerebrovascular accident. 2. 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 3. Recently status post aspiration pneumonia. 4. Type 2 diabetes mellitus. 5. Status post cerebrovascular accident. 6. Coronary artery disease. 7. Seizure disorder. 8. Urinary incontinence. 9. History of status post hypoxic encephalopathy. PAST SURGICAL HISTORY: 1. Status post PEG tube placement. 2. Status post upper GI endoscopy. 3. Status post colonoscopy with resection of large polyps. 4. Status post appendectomy. 5. Status post rotator cuff injury. 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 Education, 11th grade. Smoked for 25 years, two packs a day, currently not smoking. Alcohol, none. No drug abuse. Status post multiple blood transfusions. ALLERGIES: None. TRAUMA: Status post left shoulder injury. IMMUNIZATIONS: Up to date. HOSPITALIZATIONS: Please see past medical history. FAMILY HISTORY: No family history of ESRD. PHYSICAL EXAMINATION: VITAL SIGNS: Blood pressure is noted at 137/74, heart rate 81, respiratory rate 15, temperature 99.1 , pulse ox 98%. GENERAL: The patient is awake, spontaneous eye opening, not following my commands. HEENT: Pale conjunctivae, anicteric sclerae. NECK: No neck mass, no carotid bruits, no JVD. CHEST: No deformities. LUNGS: Decreased breath sounds. HEART: Normal sinus rhythm. No murmurs, no gallops, no rubs. ABDOMEN: Globular, soft, positive for PEG tube. EXTREMITIES: Trace edema. LABORATORY DATA: Laboratories of 12/28/2017; white count 8.2, hemoglobin 6.7. Laboratories of 12/28, sodium 129, potassium 3.9, chloride 94, carbon dioxide 26, BUN 138, creatinine 3.69, glucose 1 57, and calcium 8.2. ASSESSMENT AND PLAN: Acute kidney injury on top of his chronic renal failure - he may have hemodynam ically mediated renal dysfunction. His BUN is elevated at 138 and he has anemia. The possibility of an upper gastrointestinal bleed remains with this patient. Consider checking stool cards. Start al bumin infusion 25 grams IV q.6. I strongly feel that this patient is not a dialysis candidate due to his multiple comorbid problems. I left a message with his over to discuss these issues. For t he moment, agree with current management. P.r.n. blood transfusion.
[2017-12-28] MEDS: Albumin 25% 25 GM/100 ML BOT IVPB SCH ×2 (14:24→16:18)
--- NOTE | 2017-12-28 14:26 | PDOC.PN ---
- Subjective Encounter Start Date: 12/28/17 Encounter Start Time: 12:00 Subjective: pt up in bed awake but not very verbal - Objective Vital Signs & Weight: Vital Signs (12 hours) Temp Pulse Pulse Resp BP BP BP 12/28/17 13:22 76 100/65 12/28/17 13:04 12/28/17 11:29 97.7 F 87 19 138/56 L 12/28/17 11:21 98.1 F 85 16 151/60 H 12/28/17 11:19 82 20 12/28/17 10:08 98.5 F 93 18 136/56 L 12/28/17 09:08 81 137/74 12/28/17 09:07 81 12/28/17 08:37 99.1 F 81 15 12/28/17 08:12 81 15 12/28/17 07:17 99.1 F 83 20 142/53 H 12/28/17 04:10 98.7 F 77 17 146/61 H 12/28/17 04:00 Pulse Ox 12/28/17 13:22 12/28/17 13:04 100 12/28/17 11:29 95 12/28/17 11:21 100 12/28/17 11:19 100 12/28/17 10:08 93 L 12/28/17 09:08 12/28/17 09:07 12/28/17 08:37 12/28/17 08:12 98 12/28/17 07:17 100 12/28/17 04:10 100 12/28/17 04:00 100 Weight Admit Weight 191 lb 9.6 oz Weight 188 lb 11.2 oz I&O: 12/27/17 12/28/17 12/29/17 06:59 06:59 06:59 Intake Total 474 550 Output Total 500 1850 Balance -500 -1376 550 Result Diagrams: 12/28/17 04:55 12/28/17 04:55 Additional Labs: Accuchecks 12/28/17 12/28/17 12/28/17 10:45 06:17 00:22 POC Glucose 225 H 161 H 147 H 12/27/17 12/27/17 18:17 14:53 POC Glucose 103 82 Phys Exam - Physical Examination Neck: no nodes Respiratory: wheezing present (pt has rhonchi all over lungs) Cardiovascular: RRR Gastrointestinal: soft, non-tender (feeding tube present) Musculoskeletal: no edema Lymphatic: no nodes Dx/Plan - Plan * . 1. Acute Hypoxic respiratory failure 2. Pulmonary edema 3. ADAM over CKD 4. HTN 5. Possible pneumonia 6) anemia Plan: 1. Will start lasix 40mg iv q12hrs 2. Cradio, pulmonary and nephrology on board. Management per them 3. Continue bp meds. Pt's hh is low will give one unit of blood and check fecal occult blood. Pt's bun is very high at 138. 4.blood cx positive for gram positive coagulase staph and urine cx pseudo. will continue vanc and change Levaquin to cefepime since pt's last cx was resistant to Levaquin. 5. pt is dnr overall poor prognosis Review of Systems - Review of Systems Cardiovascular: negative: chest pain, palpitations, orthopnea, paroxysmal nocturnal dyspnea, edema, light headedness, other Other: unable to do - Medications/Allergies Allergies/Adverse Reactions: Allergies Allergy/AdvReac Type Severity Reaction Status Date / Time No Known Allergies Allergy Verified 12/27/17 01:41 Medications: Current Medications Acetaminophen (Tylenol Elixir) 650 mg PER TUBE Q6HR PRN PRN Reason: Pain Al Hydroxide/Mg Hydroxide (Maalox) 30 ml PER TUBE QID PRN PRN Reason: Indigestion Albumin Human (Albumin 25%) 25 gm IVPB Q6HR [facility] Stop: 12/31/17 06:01 Last Admin: 12/28/17 14:24 Dose: Not Given Albuterol Sulfate (Ventolin) 2.5 mg NEB [id number] PRN PRN Reason: Wheezing Albuterol/Ipratropium (Duoneb) 3 ml NEB [id number] [facility] Last Admin: 12/28/17 11:19 Dose: 3 ml Albuterol/Ipratropium (Duoneb) 3 ml NEB QID PRN PRN Reason: Wheezing Amlodipine Besylate (Norvasc) 10 mg PER TUBE DAILY [facility] Last Admin: 12/28/17 09:07 Dose: 10 mg Aspirin (Aspirin Chewable) 81 mg PER TUBE DAILY [facility] Last Admin: 12/28/17 09:07 Dose: 81 mg Atorvastatin Calcium (Lipitor) 40 mg PER TUBE HS [facility] Last Admin: 12/27/17 20:30 Dose: 40 mg Calcium Carbonate (Tums) 500 mg PER TUBE QIDPRN PRN PRN Reason: Indigestion Clonidine (Catapres) 0.1 mg PER TUBE Q6H PRN PRN Reason: Hypertension Clopidogrel Bisulfate (Plavix) 75 mg PER TUBE DAILY [facility] Last Admin: 12/28/17 09:08 Dose: 75 mg Dextrose/Water (Dextrose 50%) 25 gm SLOW IVP PRN PRN PRN Reason: Hypoglycemia Docusate Sodium (Colace Liquid) 100 mg PER TUBE BID [facility] Last Admin: 12/28/17 09:08 Dose: 100 mg Epoetin Candido (Procrit) 7,500 units SC Q7D [facility] Last Admin: 12/28/17 09:15 Dose: 7,500 units Ferrous Sulfate (Feosol) 325 mg PO BID[facility] Furosemide (Lasix) 40 mg SLOW IVP 0600,1400 [facility] Last Admin: 12/28/17 05:30 Dose: 40 mg Glucagon (Glucagon) 1 mg IM PRN PRN PRN Reason: Hypoglycemia Guaifenesin/Codeine Phosphate (Robitussin Ac) 10 ml PER TUBE Q4H PRN PRN Reason: Cough Heparin Sodium (Porcine) (Heparin) 5,000 units SC TID [facility] Last Admin: 12/28/17 09:08 Dose: 5,000 units Hydralazine HCl (Apresoline) 100 mg PER TUBE QID [facility] Last Admin: 12/28/17 13:22 Dose: Not Given Vancomycin HCl 750 mg/ Sodium (Chloride) 250 mls @ 250 mls/hr IVPB Q24HR [facility] Last Admin: 12/28/17 05:30 Dose: 250 mls Dextrose/Water (D5w) 1,000 mls @ 0 mls/hr IV .Q0M PRN; As Directed PRN Reason: Hypoglycemia Cefepime HCl 2 gm/ Syringe 2.5 (ml/ Sodium Chloride) 12.5 mls @ 150 mls/hr SLOW IVP Q12HR [facility] Last Admin: 12/28/17 09:14 Dose: 12.5 mls Insulin Human Lispro (Humalog) 0 units SC .MILD SLIDING SCALE PRN PRN Reason: Mild Correctional Scale Last Admin: 12/28/17 11:45 Dose: 3 unit Isosorbide Dinitrate (Isordil) 60 mg PER TUBE BID [facility] Last Admin: 12/28/17 09:07 Dose: 60 mg Lactulose (Lactulose) 20 gm PO DAILYPRN PRN PRN Reason: Constipation Levetiracetam (Keppra Oral Solution) 500 mg PER TUBE BID [facility] Last Admin: 12/28/17 09:09 Dose: 500 mg Magnesium Hydroxide (Milk Of Magnesium) 30 ml PER TUBE BIDPRN PRN PRN Reason: Constipation Miscellaneous Medication (Pharmacy To Dose) 1 each IVPB PRN PRN PRN Reason: Pharmacy to dose Nitroglycerin (Nitrostat) 0.4 mg SL Q5MIN PRN PRN Reason: Chest Pain Oxybutynin Chloride (Ditropan) 5 mg PER TUBE BID [facility] Last Admin: 12/28/17 09:07 Dose: 5 mg Sodium Bicarbonate (Bicarbonate, Sodium) 650 mg PER TUBE BIDPRN PRN PRN Reason: Indigestion Sodium Chloride (Flush - Normal Saline) 10 ml IVF Q12HR [facility] Last Admin: 12/28/17 09:10 Dose: 10 ml Sodium Chloride (Flush - Normal Saline) 10 ml IVF PRN PRN PRN Reason: Saline Flush Last Admin: 12/28/17 05:31 Dose: 10 ml
--- NOTE | 2017-12-28 16:15 | PRG ---
DATE OF SERVICE: 12/28/2017 SUBJECTIVE: He is in no distress. He opens his eyes. He is nonverbal. OBJECTIVE: VITAL SIGNS: He is afebrile, heart rate 79, respiratory rate 16, oximetry is 100% on 2 liters, and b lood pressure 146/57. LUNGS: Remarkable for mild rhonchi at his left base. HEART: Regular rhythm. IMPRESSION: 1. Aspiration pneumonia. 2. Advanced dementia. 3. Deconditioning and essentially bedridden state. He is in mild hyponatremia. 4. Anemia, likely mixed. 5. Chronic kidney disease. 6. Diabetes. PLAN: I would consider transfusion. Continue with supportive care. He is stable to move out of [facility].
[2017-12-28] MEDS: Ferrous Sulfate 325 MG TAB PO SCH (16:21)
[2017-12-28] MEDS: Atorvastatin Calcium 40 MG TAB PER TUBE SCH ×2 (20:52→22:29)
[2017-12-28] MEDS ORDERED: Pantoprazole 40 MG VIAL IVP SCH (23:30)
[2017-12-29] MEDS: Albumin 25% 25 GM/100 ML BOT IVPB SCH ×4 (00:59→17:19)
[2017-12-29] MEDS: Acetaminophen 650 MG Suppository PR PRN (01:21)
[2017-12-29 05:13] LABS: #Lymphocytes 1.2 thou/uL (1.20-3.40); #Monocytes 1.6 thou/uL (0.11-0.59); #Neutrophils 8.8 thou/uL (1.40-6.50); %Basophils 0.1 % (0.0-1.0); %Eosinophils 0.3 % (0.0-10.0); %Lymphocytes 10.5 % (21.0-51.0); %Monocytes 13.7 % (0.0-10.0); %Neutrophils 75.4 % (42.0-75.0); Hemoglobin 7.6 g/dL (14.0-18.0); Mean Corpuscular HGB CONC 33.8 g/dL (32.0-36.0); Mean Corpuscular Hemoglobin 30.5 pg (27.0-31.0); Mean Corpuscular Volume 90.1 fl (80.0-94.0); Mean Platelet Volume 10.3 fL (7.4-10.4); Platelet Count 144 thou/uL (130-400); RBC Distribution Width 14.4 % (11.5-14.5); Red Blood Cell (RBC) Count 2.48 mill/uL (4.70-6.10); White Blood Cell (WBC) Count 11.7 thou/uL (4.8-10.8)
[2017-12-29] MEDS: Furosemide 40 MG/4 ML VIAL SLOW IVP SCH ×2 (05:21→14:15)
[2017-12-29] MEDS ORDERED: Vancomycin HCl 750 MG in Sodium Chloride 0.9% 250 ML 250 ML IVPB SCH (08:00)
[2017-12-29] MEDS: Pantoprazole 40 MG VIAL IVP SCH ×2 (09:03→20:33)
[2017-12-29] MEDS: Oxybutynin 5 MG TAB PER TUBE SCH ×2 (09:04→20:36)
[2017-12-29] MEDS: hydrALAZINE 25 MG TAB PER TUBE SCH ×4 (09:04→20:35)
[2017-12-29] MEDS: Heparin 5,000 UNITS/ML VIAL SC SCH ×3 (09:04→20:34)
[2017-12-29] MEDS: Docusate Sodium 100 MG/10 ML UDCUP PER TUBE SCH ×2 (09:05→20:34)
[2017-12-29] MEDS: Amlodipine 10 MG TAB PER TUBE SCH (09:05)
[2017-12-29] MEDS: Ferrous Sulfate 325 MG TAB PO SCH ×2 (09:05→16:53)
[2017-12-29] MEDS: Clopidogrel Bisulfate 75 MG TAB PER TUBE SCH (09:05)
[2017-12-29] MEDS: Isosorbide Dinitrate 20 MG TAB PER TUBE SCH ×2 (09:06→20:36)
--- NOTE | 2017-12-29 10:14 | PRG ---
DATE OF SERVICE: 12/29/2017 RENAL MEDICINE SUBJECTIVE: Mr. Troy is a 72-year-old black male [facility] for his chronic r enal failure. Over the last several years, he has progressive renal dysfunction. I did have a long discussion with the who is the caregiver that this patient is not a good dialysis candidate. Norma vines agrees that we should not offer dialysis with this patient. For the moment, patient states that norma vines has been tired with this chronic problem he has been having. A palliative care consult will be marcia vines. No acute events. OBJECTIVE: GENERAL: VITAL SIGNS: Blood pressure 139/70, heart rate 85, respiratory 16, temperature 99.5, and pulse ox 97 %. GENERAL: Awake, alert, comfortable, not in distress. SKIN: Adequate turgor. HEENT: He has slightly pale conjunctivae, anicteric sclerae. NECK: No neck mass, no carotid bruits, no JVD. CHEST: No deformities. LUNGS: Clear breath sounds. HEART: Normal sinus rhythm. No murmur, no gallops, no rubs. ABDOMEN: Globular, soft, nontender. EXTREMITIES: No edema. Right-sided weakness. MEDICATIONS: Of 12/29/2017 reviewed. LABORATORY DATA: Of 12/29/2017, white count 11.7, hemoglobin 7.6. On 12/28/2017, sodium 129, potassium 3.9, chloride 94, carbon dioxide 26, BUN 138, creatinine 3.69. ASSESSMENT AND PLAN: 1. Acute kidney injury over chronic renal failure - superimposed prerenal azotemia. Initially, socrates ent has been started on diuretics. Currently, I have started this patient on albumin infusion. My s uggestion is we decrease the diuretics from twice a day to once a day depending on his pulmonary stat us. 2. Anemia, initiated on Epogen and iron supplementation. Please note that this patient is not a kacey lysis candidate. Continue supportive care. Recheck base met and CBC in a.m.
--- NOTE | 2017-12-29 13:49 | RAD ---
SINGLE VIEW CHEST: HISTORY: Shortness of breath. COMPARISON: 12/26/2017 FINDINGS: A single view of the chest shows a normal sized cardiomediastinal silhouette. There are worsening mu ltifocal air space opacities scattered throughout the lungs. No pleural effusion is seen. IMPRESSION: Worsening multifocal pneumonia. POS: [facility]
[2017-12-29] MEDS ORDERED: Meropenem 1 GM in Sodium Chloride 0.9% 100 ML IVPB SCH (14:00)
--- NOTE | 2017-12-29 14:11 | CON ---
DATE OF CONSULTATION: 12/29/2017 REASON FOR CONSULTATION: Upper GI bleeding. HISTORY OF PRESENT ILLNESS: Richard Troy is a 72-year-old man with a history of severe dementia, prior CVAs and also progressive renal failure. He is not considered to be a good dialysis candidate. He had a PEG tube placed about a couple of years ago. He was recently hospitalized here a couple of weeks ago for PEG tube malfunction and my partner, Dr. Bermudez, replaced his PEG tube at the bedside. This went without complication and the patient was able to be discharged back to his facility. He was readmitted here a couple of days ago with symptoms of pneumonia. He is being treated with antibiotics and respiratory status has improved. Last night it was noted that he had some blood tinged residual through his new PEG tube. His hemoglobin also declined yesterday. He is chronically anemic and it appears his baseline hemoglobin is in the 8-9 range, but hemoglobin dropped to 6.7 yesterday. No further documentation of any overt gastrointestinal bleeding. The patient does not complain of any abdominal pain. He received 1 unit RBC transfusion yesterday and hemoglobin is back up to 7.6. He was started on a Protonix drip. Gastroccult testing was done of the residual from the PEG and this was positive. REVIEW OF SYSTEMS: Unable to obtain due to the patient's advanced dementia and altered mental status. PAST MEDICAL HISTORY: Diabetes, hypertension, history of CVA, PEG tube replacement a couple of weeks ago, chronic kidney disease stage 4, recurrent UTIs, narcolepsy, seizure disorder, dementia, BPH. PAST SURGICAL HISTORY: Appendectomy, cholecystectomy, rotator cuff surgery, suprapubic catheter placement. OUTPATIENT MEDICATIONS: Acetaminophen, Maalox, amlodipine, aspirin, atorvastatin, Tums, Catapres, Plavix, ferrous sulfate, furosemide, hydralazine, isosorbide dinitrate, DuoNebs, insulin, Keppra, oxybutynin. ALLERGIES: No known drug allergies. SOCIAL HISTORY: The patient is from the care home. No history of tobacco or alcohol per chart. FAMILY HISTORY: Unobtainable. PHYSICAL EXAMINATION: VITAL SIGNS: Temperature 98.3, pulse 77, blood pressure 139/70, 96% oxygen saturation on 2 liters of nasal cannula. GENERAL: Chronically ill, demented a 72-year-old -[place] gentleman lying in bed comfortably in no distress. SKIN: No jaundice, no rash visible or palpable. I did not examine his backside. EYES: No scleral icterus. Extraocular movements intact. ENT: Mucous membranes moist. LYMPH: No submandibular, supraclavicular lymphadenopathy. THYROID: Nontender to palpation. HEART: Regular rate and rhythm. LUNGS: Bibasilar crackles, no respiratory distress, no wheezing. ABDOMEN: Mild distention, tympanitic to percussion. He has a PEG tube in place in the left upper quadrant. There is some crusted dried blood around the PEG site. No overt bleeding in the tube. No tenderness in the area. No fluctuance. EXTREMITIES: 1+ bilateral lower extremity edema. NEUROLOGIC: Unable to follow commands. LABORATORY STUDIES: Hemoglobin was 6.7 yesterday up to 7.6 today after 1 unit RBC transfusion. WBC 11.7, platelets 144, sodium 129, potassium 3.9, BUN 138, creatinine 3.69, glucose 114. Urine WBCs greater than 50. ASSESSMENT AND PLAN: 1. Anemia, acute on chronic. 2. Upper gastrointestinal bleeding, with noted red blood in the PEG tube yesterday. 3. Oropharyngeal dysphagia, status post PEG placement a couple of years ago and PEG replacement a couple of weeks ago. Overall, the patient's prognosis is extremely poor. He is not a good candidate for dialysis. It appears palliative care consultation has been requested. The patient is hemodynamically stable. On the other hand, he has had clear overt bleeding from his PEG tube in the context of recent PEG replacement. Endoscopic investigation would be reasonable, unless the patient's family decided to pursue hospice care. At this point, we will tentatively plan for diagnostic upper endoscopy tomorrow. Continue to trend H and H, and continue the PPI. If the patient's family elects for hospice care and comfort measures only, then obviously, we would cancel the procedure. Thank you for the consultation. Please call any time with questions or concerns. TORIE
[2017-12-29] MEDS: Meropenem 1 GM in Sodium Chloride 0.9% 100 ML IVPB SCH ×2 (14:15→21:43)
--- NOTE | 2017-12-29 15:08 | CON ---
DATE OF CONSULTATION: 12/29/2017 REASON FOR CONSULTATION: Dyspnea and hypoxemia. HISTORY OF PRESENT ILLNESS: A 72-year-old patient with a history of type 2 diabetes, hypertension, p rior CVA with quadriparesis and pretty much vegetative state whom I had seen in the past for complica tions related to his neurological impairment. Patient has a suprapubic catheter and in 04/2017, he w as admitted with fever. There was a concern with aspiration at that time with bilateral pleural pare nchymal opacities. The patient at this time comes in with the above symptoms. Initial findings show ed an O2 sat 97% with oxygen supplementation, pulse 85, respirations 20, BP 150/96. There is evidenc e of reduced breath sounds, but no crackles noted. Heart exam was normal. Abdomen was not distended . The patient had a suprapubic catheter and a gastrostomy tube with normal appearing exit site. Ini tial laboratory data, white cell count 13.9, hemoglobin 10.9, MCV 90, platelets 181. Sodium 129, cre atinine 3.69 which is a little bit higher than the baseline of 2.41, AST 49, ALT 63 and alkaline phos phatase 192, and albumin 3.1. Urinalysis greater than 50 wbcs. Patient had a chest x-ray done which showed a pneumonitis, left lung base and he just had a repeat chest x-ray completed, which shows mor e prominent right-sided area of infiltrate in the mid lung field. Actually, there was more like diff use infiltrates in both sides, more prominent on the right side at this time. The patient is awake. He does not establish eye contact. He is not able to interact with examiner, does not follow comman ds. 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 ALLERGIES: None. CURRENT MEDICATIONS: Tylenol, Maalox, albumin, Ventolin, DuoNeb, aspirin, Lipitor, Tums, Plavix, Cat apres, Colace, Procrit, Feosol, Lasix, hydralazine, insulin, lactulose, Keppra, meropenem, and vancom ycin. FAMILY HISTORY: Noncontributory. PHYSICAL EXAMINATION: VITAL SIGNS: T-max 100.3, blood pressure 140/50, pulse 85, respirations 18, O2 sat 97%. SKIN: Shows right side at the area of pressure ulceration in gluteal region close to the presacral r egion on right side with irregular margins and fairly fresh red base, small areas of abrasion in the left side much smaller though and patient has a peripheral IV access. The exit sites of the gastrost kenyon and suprapubic tubes appeared normal. The patient keeps his eyes open, but does not establish ey e contact. The eyes are conjugate. HEENT: He seems to have a gaze preference to the right side. No nystagmus is noted. Pale conjuncti vae. Oral cavity was not visualized. The patient did not open his mouth. He has got diffuse stiffn ess. LUNGS: With coarse inspiratory crackles, right and left hemithorax. No wheezing. HEART: S1, S2 with regular rate. No S3. ABDOMEN: Soft, not distended, no ascites. No bladder distention, no organomegaly. EXTREMITIES: Patient has quadriparesis. The hands are crossed across his abdomen. The lower extrem ities are stretched and extension, has got clonus bilaterally. LABORATORY DATA: The latest labs with white cell count at 11.7, hemoglobin 7.6, platelets 144, 75% n eutrophils. Microbiology: We have 2 sets of blood cultures with coagulase-negative Staphylococcus. Those were identified as Staph epidermides, one was collected at 2336. The second set is labeled as 12/03. Urine culture with Pseudomonas aeruginosa. ASSESSMENT AND PLAN: Quadriparesis and vegetative state following cerebrovascular accident with leeanne re neurological impairment, recurrent episodes of aspiration pneumonia with likely another one of tho se which led to this current admission. Discontinue vancomycin. Continue meropenem. The organism i solated from blood cultures, likely contaminant of the sample rather than true pathogen.
[2017-12-29] MEDS ORDERED: Morphine 4 MG/ML VIAL SLOW IVP PRN (19:51)
[2017-12-29] MEDS: Atorvastatin Calcium 40 MG TAB PER TUBE SCH (20:34)
--- NOTE | 2017-12-29 22:04 | PDOC.PN ---
- Subjective Encounter Start Date: 12/29/17 Encounter Start Time: 12:15 Subjective: pt nonverbal - Objective Vital Signs & Weight: Vital Signs (12 hours) Temp Pulse Resp BP Pulse Ox 12/29/17 20:00 98.5 F 118 H 26 H 197/81 H 92 L 12/29/17 18:13 76 24 H 96 12/29/17 16:54 78 12/29/17 15:36 78 22 H 96 12/29/17 12:27 77 12/29/17 10:54 77 20 96 Weight Admit Weight 191 lb 9.6 oz Weight 6.84 oz I&O: 12/28/17 12/29/17 12/30/17 06:59 06:59 06:59 Intake Total 474 1414 Output Total 1850 1250 550 Balance -1376 164 -550 Result Diagrams: 12/29/17 04:57 12/28/17 04:55 Additional Labs: Accuchecks 12/29/17 12/29/17 12/29/17 19:35 16:35 11:21 POC Glucose 101 96 114 H 12/29/17 12/29/17 05:22 01:28 POC Glucose 124 H 127 H Phys Exam - Physical Examination Neck: no nodes Respiratory: wheezing present mild rhonchi Cardiovascular: RRR, no significant murmur Gastrointestinal: soft Musculoskeletal: edema present contraction to lower ext unable to assess Dx/Plan - Plan 1. Acute Hypoxic respiratory failure 2. Pulmonary edema 3. ADAM over CKD 4. HTN 5. Possible pneumonia 6) anemia 7) uti with pseudomonas Plan: 1. Will start lasix 40mg iv q12hrs 2. Cradio, pulmonary and nephrology on board. Management per them 3. Continue bp meds. Pt's hh is low will give one unit of blood and check fecal occult blood. Pt's bun is very high at 138. pt to have egd today 4.blood cx positive for gram positive coagulase staph and urine cx pseudo. will continue vanc and change cefepime to meropenam since pseudo is resistant to cefepime. 5. pt is dnr overall poor prognosis. spoke with pt's about hospice given pt 's multiple medical problems. will have meeting with hospice and pt's face to face in am * . Review of Systems - Review of Systems Other: unable to assess - Medications/Allergies Allergies/Adverse Reactions: Allergies Allergy/AdvReac Type Severity Reaction Status Date / Time No Known Allergies Allergy Verified 12/27/17 01:41 Medications: Current Medications Acetaminophen (Tylenol) 650 mg MO Q6H PRN PRN Reason: Pain Last Admin: 12/30/17 00:26 Dose: 650 mg Al Hydroxide/Mg Hydroxide (Maalox) 30 ml PER TUBE QID PRN PRN Reason: Indigestion Albumin Human (Albumin 25%) 25 gm IVPB Q6HR [facility] Stop: 12/31/17 06:01 Last Admin: 12/30/17 00:22 Dose: 25 gm Albuterol Sulfate (Ventolin) 2.5 mg NEB [id number] PRN PRN Reason: Wheezing Albuterol/Ipratropium (Duoneb) 3 ml NEB [id number] [facility] Last Admin: 12/30/17 05:19 Dose: 3 ml Albuterol/Ipratropium (Duoneb) 3 ml NEB QID PRN PRN Reason: Wheezing Amlodipine Besylate (Norvasc) 10 mg PER TUBE DAILY [facility] Last Admin: 12/29/17 09:05 Dose: Not Given Aspirin (Aspirin Chewable) 81 mg PER TUBE DAILY [facility] Last Admin: 12/29/17 09:05 Dose: Not Given Atorvastatin Calcium (Lipitor) 40 mg PER TUBE HS [facility] Last Admin: 12/29/17 20:34 Dose: Not Given Calcium Carbonate (Tums) 500 mg PER TUBE QIDPRN PRN PRN Reason: Indigestion Clonidine (Catapres) 0.1 mg PER TUBE Q6H PRN PRN Reason: Hypertension Clopidogrel Bisulfate (Plavix) 75 mg PER TUBE DAILY [facility] Last Admin: 12/29/17 09:05 Dose: Not Given Dextrose/Water (Dextrose 50%) 25 gm SLOW IVP PRN PRN PRN Reason: Hypoglycemia Docusate Sodium (Colace Liquid) 100 mg PER TUBE BID [facility] Last Admin: 12/29/17 20:34 Dose: Not Given Epoetin Candido (Procrit) 7,500 units SC Q7D [facility] Last Admin: 12/28/17 09:15 Dose: 7,500 units Ferrous Sulfate (Feosol) 325 mg PO BID-[facility] Last Admin: 12/29/17 16:53 Dose: Not Given Furosemide (Lasix) 40 mg SLOW IVP 0600,1400 [facility] Last Admin: 12/30/17 05:23 Dose: 40 mg Glucagon (Glucagon) 1 mg IM PRN PRN PRN Reason: Hypoglycemia Guaifenesin/Codeine Phosphate (Robitussin Ac) 10 ml PER TUBE Q4H PRN PRN Reason: Cough Heparin Sodium (Porcine) (Heparin) 5,000 units SC TID [facility] Last Admin: 12/29/17 20:34 Dose: Not Given Hydralazine HCl (Apresoline) 100 mg PER TUBE QID [facility] Last Admin: 12/29/17 20:35 Dose: Not Given Dextrose/Water (D5w) 1,000 mls @ 0 mls/hr IV .Q0M PRN; As Directed PRN Reason: Hypoglycemia Levetiracetam 500 mg/ Device 100 mls @ 200 mls/hr IVPB BID [facility] Last Admin: 12/29/17 20:51 Dose: 100 mls Meropenem 1 gm/ Sodium (Chloride) 100 mls @ 200 mls/hr IVPB Q8HR [facility] Last Admin: 12/30/17 05:25 Dose: 100 mls Insulin Human Lispro (Humalog) 0 units SC .MILD SLIDING SCALE PRN PRN Reason: Mild Correctional Scale Last Admin: 12/28/17 11:45 Dose: 3 unit Isosorbide Dinitrate (Isordil) 60 mg PER TUBE BID [facility] Last Admin: 12/29/17 20:36 Dose: Not Given Lactulose (Lactulose) 20 gm PO DAILYPRN PRN PRN Reason: Constipation Magnesium Hydroxide (Milk Of Magnesium) 30 ml PER TUBE BIDPRN PRN PRN Reason: Constipation Morphine Sulfate (Morphine) 2 mg SLOW IVP Q4H PRN PRN Reason: Pain Last Admin: 12/29/17 20:31 Dose: 2 mg Nitroglycerin (Nitrostat) 0.4 mg SL Q5MIN PRN PRN Reason: Chest Pain Oxybutynin Chloride (Ditropan) 5 mg PER TUBE BID [facility] Last Admin: 12/29/17 20:36 Dose: Not Given Pantoprazole Sodium (Protonix) 40 mg IVP BID [facility] Last Admin: 12/29/17 20:33 Dose: 40 mg Sodium Bicarbonate (Bicarbonate, Sodium) 650 mg PER TUBE BIDPRN PRN PRN Reason: Indigestion Sodium Chloride (Flush - Normal Saline) 10 ml IVF Q12HR [facility] Last Admin: 12/29/17 20:32 Dose: 10 ml Sodium Chloride (Flush - Normal Saline) 10 ml IVF PRN PRN PRN Reason: Saline Flush Last Admin: 12/28/17 05:31 Dose: 10 ml
[2017-12-30] MEDS: Albumin 25% 25 GM/100 ML BOT IVPB SCH ×3 (00:22→12:58)
[2017-12-30] MEDS: Acetaminophen 650 MG Suppository PR PRN (00:26)
[2017-12-30] MEDS: Furosemide 40 MG/4 ML VIAL SLOW IVP SCH ×2 (05:23→15:23)
[2017-12-30] MEDS: Meropenem 1 GM in Sodium Chloride 0.9% 100 ML IVPB SCH (05:25)
[2017-12-30 07:55] LABS: #Lymphocytes 1.1 thou/uL (1.20-3.40); #Monocytes 1.5 thou/uL (0.11-0.59); #Neutrophils 14.7 thou/uL (1.40-6.50); %Basophils 0.1 % (0.0-1.0); %Lymphocytes 6.4 % (21.0-51.0); %Monocytes 8.4 % (0.0-10.0); Hemoglobin 7.9 g/dL (14.0-18.0); Mean Corpuscular HGB CONC 32.5 g/dL (32.0-36.0); Mean Corpuscular Hemoglobin 29.9 pg (27.0-31.0); Mean Corpuscular Volume 91.9 fl (80.0-94.0); Mean Platelet Volume 10.6 fL (7.4-10.4); Platelet Count 149 thou/uL (130-400); RBC Distribution Width 14.5 % (11.5-14.5); Red Blood Cell (RBC) Count 2.63 mill/uL (4.70-6.10); White Blood Cell (WBC) Count 17.3 thou/uL (4.8-10.8)
[2017-12-30 08:42] LABS: Anion Gap 22 mmol/L (10-20); Calc. Creatinine Clearance 20 mL/min (70-130); Carbon Dioxide 20 mmol/L (23-31); Chloride 99 mmol/L (98-107); Estimated GFR-MDRD 18; Glucose 72 mg/dL (80-115); Potassium 3.9 mmol/L (3.5-5.1); Sodium 137 mmol/L (136-145)
[2017-12-30] MEDS ORDERED: Labetalol HCl 100 MG/20 ML VIAL SLOW IVP PRN (08:43)
[2017-12-30] MEDS: Ferrous Sulfate 325 MG TAB PO SCH ×2 (09:22→17:01)
[2017-12-30] MEDS: Amlodipine 10 MG TAB PER TUBE SCH (09:24)
[2017-12-30] MEDS: Oxybutynin 5 MG TAB PER TUBE SCH ×2 (09:25→20:30)
[2017-12-30] MEDS: Heparin 5,000 UNITS/ML VIAL SC SCH ×3 (09:25→20:30)
[2017-12-30] MEDS: Isosorbide Dinitrate 20 MG TAB PER TUBE SCH ×2 (09:25→20:30)
[2017-12-30] MEDS: hydrALAZINE 25 MG TAB PER TUBE SCH ×4 (09:25→20:30)
[2017-12-30] MEDS: Clopidogrel Bisulfate 75 MG TAB PER TUBE SCH (09:25)
[2017-12-30] MEDS: Docusate Sodium 100 MG/10 ML UDCUP PER TUBE SCH ×2 (09:25→20:29)
[2017-12-30 09:33] LABS: BUN (Urea Nitrogen) 143 mg/dL (8.4-25.7)
[2017-12-30] MEDS: Pantoprazole 40 MG VIAL IVP SCH ×2 (09:58→20:31)
--- NOTE | 2017-12-30 11:09 | PRG ---
DATE OF SERVICE: 12/30/2017 SUBJECTIVE: Mr. Troy is nonverbal. OBJECTIVE: VITAL SIGNS: He is afebrile, respiratory rate is 16, heart rate 82, oximetry is 94% on room air, blo od pressure 191/77. LUNGS: Remarkable for mild rhonchi. HEART: Regular rhythm. IMPRESSION: Aspiration pneumonia. PLAN: It would be reasonable to convert him to antimicrobial therapy through his PEG in my opinion a nd consider transferring him back to his care environment.
--- NOTE | 2017-12-30 15:34 | PDOC.PN ---
- Subjective Encounter Start Date: 12/30/17 Encounter Start Time: 11:30 Subjective: pt asleep, arousable but disoriented - Objective Vital Signs & Weight: Vital Signs (12 hours) Temp Pulse Resp BP Pulse Ox 12/30/17 14:32 80 22 H 94 L 12/30/17 12:57 85 12/30/17 10:28 85 22 H 95 12/30/17 09:25 82 12/30/17 09:24 82 12/30/17 08:14 97.7 F 82 16 191/77 H 94 L 12/30/17 06:31 92 24 H 96 12/30/17 05:20 96 Weight Admit Weight 191 lb 9.6 oz Weight 188 lb I&O: 12/29/17 12/30/17 12/31/17 06:59 06:59 06:59 Intake Total 1414 500 Output Total 1250 850 Balance 164 -350 Result Diagrams: 12/30/17 03:30 12/30/17 06:30 Additional Labs: Accuchecks 12/30/17 12/30/17 12/29/17 11:19 05:11 19:35 POC Glucose 71 89 101 12/29/17 16:35 POC Glucose 96 Phys Exam - Physical Examination HEENT: PERRLA, moist MMs, sclera anicteric, TM's clear, oral pharynx no lesions , 2+ tonsils Neck: no nodes, no JVD, supple, full ROM Respiratory: wheezing present Cardiovascular: RRR, no significant murmur, no rub, gallop, irregular Gastrointestinal: soft, non-tender, no distention, positive bowel sounds Musculoskeletal: edema present Dx/Plan - Plan 1. Acute Hypoxic respiratory failure 2. Pulmonary edema 3. ADAM over CKD 4. HTN 5. Possible pneumonia 6) anemia 7) uti with pseudomonas Plan: 1. Will start lasix 40mg iv q12hrs 2. Cradio, pulmonary and nephrology on board. Management per them 3. Continue bp meds. Pt's hh is low will give one unit of blood and check fecal occult blood. Pt's bun is very high at 138. pt to have egd today 4.blood cx positive for gram positive coagulase staph and urine cx pseudo. will continue vanc and change cefepime to meropenam since pseudo is resistant to cefepime. 5. pt is dnr overall poor prognosis. spoke with pt's about hospice given pt 's multiple medical problems. will have meeting with hospice and pt's face to face in am spoke with pt and she has agrees on hospice. Will ask nurse to call GI for cancelling the EGD. * . Review of Systems - Review of Systems Other: unable to participate - Medications/Allergies Allergies/Adverse Reactions: Allergies Allergy/AdvReac Type Severity Reaction Status Date / Time No Known Allergies Allergy Verified 12/27/17 01:41 Medications: Current Medications Acetaminophen (Tylenol) 650 mg VT Q6H PRN PRN Reason: Pain Last Admin: 12/30/17 00:26 Dose: 650 mg Al Hydroxide/Mg Hydroxide (Maalox) 30 ml PER TUBE QID PRN PRN Reason: Indigestion Albuterol Sulfate (Ventolin) 2.5 mg NEB [id number] PRN PRN Reason: Wheezing Albuterol/Ipratropium (Duoneb) 3 ml NEB [id number] [facility] Last Admin: 12/30/17 14:32 Dose: 3 ml Albuterol/Ipratropium (Duoneb) 3 ml NEB QID PRN PRN Reason: Wheezing Amlodipine Besylate (Norvasc) 10 mg PER TUBE DAILY [facility] Last Admin: 12/30/17 09:24 Dose: Not Given Aspirin (Aspirin Chewable) 81 mg PER TUBE DAILY [facility] Last Admin: 12/30/17 09:25 Dose: Not Given Atorvastatin Calcium (Lipitor) 40 mg PER TUBE HS [facility] Last Admin: 12/29/17 20:34 Dose: Not Given Calcium Carbonate (Tums) 500 mg PER TUBE QIDPRN PRN PRN Reason: Indigestion Clonidine (Catapres) 0.1 mg PER TUBE Q6H PRN PRN Reason: Hypertension Clopidogrel Bisulfate (Plavix) 75 mg PER TUBE DAILY [facility] Last Admin: 12/30/17 09:25 Dose: Not Given Dextrose/Water (Dextrose 50%) 25 gm SLOW IVP PRN PRN PRN Reason: Hypoglycemia Docusate Sodium (Colace Liquid) 100 mg PER TUBE BID [facility] Last Admin: 12/30/17 09:25 Dose: Not Given Epoetin Candido (Procrit) 7,500 units SC Q7D [facility] Last Admin: 12/28/17 09:15 Dose: 7,500 units Ferrous Sulfate (Feosol) 325 mg PO BID-[facility] Last Admin: 12/30/17 09:22 Dose: Not Given Furosemide (Lasix) 40 mg SLOW IVP 0600,1400 [facility] Last Admin: 12/30/17 15:23 Dose: 40 mg Glucagon (Glucagon) 1 mg IM PRN PRN PRN Reason: Hypoglycemia Guaifenesin/Codeine Phosphate (Robitussin Ac) 10 ml PER TUBE Q4H PRN PRN Reason: Cough Heparin Sodium (Porcine) (Heparin) 5,000 units SC TID [facility] Last Admin: 12/30/17 14:45 Dose: Not Given Hydralazine HCl (Apresoline) 100 mg PER TUBE QID [facility] Last Admin: 12/30/17 12:57 Dose: Not Given Dextrose/Water (D5w) 1,000 mls @ 0 mls/hr IV .Q0M PRN; As Directed PRN Reason: Hypoglycemia Levetiracetam 500 mg/ Device 100 mls @ 200 mls/hr IVPB BID [facility] Last Admin: 12/30/17 09:59 Dose: 100 mls Meropenem 500 mg/ Sodium (Chloride) 100 mls @ 200 mls/hr IVPB 0600,1800 [facility] Insulin Human Lispro (Humalog) 0 units SC .MILD SLIDING SCALE PRN PRN Reason: Mild Correctional Scale Last Admin: 12/28/17 11:45 Dose: 3 unit Isosorbide Dinitrate (Isordil) 60 mg PER TUBE BID [facility] Last Admin: 12/30/17 09:25 Dose: Not Given Labetalol HCl (Normodyne) 5 mg SLOW IVP Q4H PRN PRN Reason: SBP Greater Than 180 Lactulose (Lactulose) 20 gm PO DAILYPRN PRN PRN Reason: Constipation Magnesium Hydroxide (Milk Of Magnesium) 30 ml PER TUBE BIDPRN PRN PRN Reason: Constipation Morphine Sulfate (Morphine) 2 mg SLOW IVP Q4H PRN PRN Reason: Pain Last Admin: 12/29/17 20:31 Dose: 2 mg Nitroglycerin (Nitrostat) 0.4 mg SL Q5MIN PRN PRN Reason: Chest Pain Oxybutynin Chloride (Ditropan) 5 mg PER TUBE BID [facility] Last Admin: 12/30/17 09:25 Dose: Not Given Pantoprazole Sodium (Protonix) 40 mg IVP BID [facility] Last Admin: 12/30/17 09:58 Dose: 40 mg Sodium Bicarbonate (Bicarbonate, Sodium) 650 mg PER TUBE BIDPRN PRN PRN Reason: Indigestion Sodium Chloride (Flush - Normal Saline) 10 ml IVF Q12HR [facility] Last Admin: 12/30/17 09:59 Dose: 10 ml Sodium Chloride (Flush - Normal Saline) 10 ml IVF PRN PRN PRN Reason: Saline Flush Last Admin: 12/28/17 05:31 Dose: 10 ml
[2017-12-30] MEDS: Meropenem 500 MG in Sodium Chloride 0.9% 100 ML IVPB SCH (17:48)
[2017-12-30] MEDS ORDERED: Meropenem 1 GM in Sodium Chloride 0.9% 100 ML IVPB SCH (18:00)
[2017-12-30] MEDS: Atorvastatin Calcium 40 MG TAB PER TUBE SCH (20:29)
[2017-12-31] MEDS: Furosemide 40 MG/4 ML VIAL SLOW IVP SCH ×2 (05:30→15:06)
[2017-12-31] MEDS: Meropenem 500 MG in Sodium Chloride 0.9% 100 ML IVPB SCH (05:31)
[2017-12-31] MEDS: Acetaminophen 650 MG Suppository PR PRN (05:37)
[2017-12-31] MEDS: Ferrous Sulfate 325 MG TAB PO SCH (07:29)
[2017-12-31] MEDS: Clopidogrel Bisulfate 75 MG TAB PER TUBE SCH (07:30)
[2017-12-31] MEDS: Amlodipine 10 MG TAB PER TUBE SCH (07:30)
[2017-12-31] MEDS: Docusate Sodium 100 MG/10 ML UDCUP PER TUBE SCH (07:31)
[2017-12-31] MEDS: Heparin 5,000 UNITS/ML VIAL SC SCH ×2 (07:31→15:06)
[2017-12-31] MEDS: hydrALAZINE 25 MG TAB PER TUBE SCH ×2 (07:31→14:48)
[2017-12-31] MEDS: Isosorbide Dinitrate 20 MG TAB PER TUBE SCH (07:32)
[2017-12-31] MEDS: Oxybutynin 5 MG TAB PER TUBE SCH (07:32)
[2017-12-31] MEDS: Pantoprazole 40 MG VIAL IVP SCH (09:16)
[2017-12-31 11:25] VITALS: BP 153/67; TEMP 98.3
[2017-12-31 12:55] VITALS: BMI 29.7
--- NOTE | 2017-12-31 12:56 | DIS ---
DATE OF ADMISSION: 12/27/2017 DATE OF DISCHARGE: 12/30/2017 DISPOSITION: Discharge to hospice. DISCHARGE DIAGNOSES: 1. Acute hypoxic respiratory failure. 2. Pulmonary edema. 3. Urinary tract infection with Pseudomonas resistant to several antibiotics. 4. Bacteremia. 5. Chronic kidney disease. HOSPITAL COURSE: The patient is a very pleasant 72-year-old male who is a resident at [facility] who initially came into the hospital with complaints of shortness of breath. The patient was found to be very hypoxic in the 70s. The patient at baseline has severe dementia and is bedbound. Initially, he was started on oxygen and was given broad spectrum antibiotics. He was also given diur etics. His hospital course was complicated by severe anemia requiring some blood transfusion and it was noted that his PEG tube on aspiration for residual was found to have clots of blood. At that huey e, GI was consulted who wanted the patient to undergo an EGD to find the source of the patient's anem ia and the clots that were found in his PEG tube. Patient also had a stool for occult blood, which w as sent and it was negative for any occult blood that was present; however, the patient's gastric occ ult was positive. A lengthy discussion was made with the patient's in regards to patient's over all significant medical issues and patient being having severe dementia and bedbound, recommended pos [facility] hospice. The patient's further stated that when the patient is a bit more with it, he cecelia goodson tells her that "it is time for me to pass now". At this time, hospice was consulted and the p atient will be discharged to inpatient hospice at his facility. The patient's is aware of this and is okay with this decision. Palliative care is also on board. PHYSICAL EXAMINATION: VITAL SIGNS: Today, he is afebrile at 98.4, heart rate of 91, respirations are 18, blood pressure is 153/67, 99% on 2 liters. GENERAL: He is awake, however, not oriented. CARDIOVASCULAR: S1, S2 present. No murmurs, rubs or gallops. ABDOMEN: Mild distention. Bowel sounds are present. He does have a PEG tube placement. Also, has a suprapubic catheter. LUNGS: Mild rhonchi all over. EXTREMITIES: Lower extremity, the patient has 2+ pitting edema to lower extremity. DISCHARGE MEDICATIONS: Patient is going to be going home with Lasix 40 mg per PEG tube, DuoNeb q.i.d . p.r.n., morphine 2 mg q.4 hours p.r.n., Lasix IV 40 b.i.d. and Protonix 40 IV b.i.d. and then hospi ce will take over to make patient comfortable.
--- NOTE | 2018-01-07 10:02 | PQF ---
SHIREEN GASTONMERRICK [id number] [facility]- B09 [id number] CLINICAL DOCUMENTATION CLARIFICATION FORM: POST DISCHARGE Addendum to original discharge summary date: 12/31/2017 DATE: 01/07/2018 ATTN: Dr. Crain Please exercise your independent, professional judgment in responding to the clarification form. Clinical indicators are provided on the bottom of this form for your review Please check appropriate box(es): [ x ] Gram positive Coagulase Staphylococcus Capitis/Epidermidis Sepsis due to : [ ] Indwelling urinary catheter [ ] Severe sepsis with acute organ dysfunction of: (Examples: respiratory failure, encephalopathy, acute kidney failure, other) [ ] Bacteremia only [ ] Other diagnosis (please specify) [ ] Unable to determine In addition, please specify: Present on Admission (POA): [ ] Yes [ ] No [ x ] Unable to determine For continuity of documentation, please document condition throughout progress notes and discharge summary. Thank You. CLINICAL INDICATORS - SIGNS / SYMPTOMS / LABS (per H&P) Acute hypoxic respiratory failure. Increase BUN/Double Cutter, of 132/3 54. WBC count 13.9. Positive blood cultures for Staphylococcus capitis. Methicillin resistant Staphylococcus epidermidis. Per discharge summary: Bacteremia. RISK FACTORS Bacteremia. Aspiration Pneumonia/ UTI. Indwelling urinary catheter. TREATMENTS: (per H&P/progress notes) Daily CBC. Blood/urine cultures. IV Vancomycin. IV Levaquin. IV fluids. (This form is maintained as a part of the permanent medical record) 2014 [employer] All Rights Reserved Cassia [email or web address] [phone] [place]
== END 2017-12-31 16:01 | DRG 177 ==
LOC: ERS 22:14 → IMCU/EMU 12-27 01:05 → T4-A 12-28 15:17
PROVIDERS: ADMIT Internal Medicine; ATTEND Internal Medicine
PROC: 30233N1 Transfusion of Nonautologous Red Blood Cells into Peripheral Vein, Percutaneous Approach (ICD-10-PCS; principal; 2017-12-28)
DX: J69.0 Pneumonitis due to inhalation of food and vomit (principal); J96.01 Acute respiratory failure with hypoxia; J81.0 Acute pulmonary edema; G82.50 Quadriplegia, unspecified; R40.3 Persistent vegetative state; N17.9 Acute kidney failure, unspecified; N18.4 Chronic kidney disease, stage 4 (severe); R78.81 Bacteremia; B96.5 Pseudomonas (aeruginosa) (mallei) (pseudomallei) as the cause of diseases classified elsewhere; N39.0 Urinary tract infection, site not specified; E87.1 Hypo-osmolality and hyponatremia; K92.2 Gastrointestinal hemorrhage, unspecified; E11.22 Type 2 diabetes mellitus with diabetic chronic kidney disease; I16.0 Hypertensive urgency; I12.9 Hypertensive chronic kidney disease with stage 1 through stage 4 chronic kidney disease, or unspecified chronic kidney disease; I69.365 Other paralytic syndrome following cerebral infarction, bilateral; F03.90 Unspecified dementia, unspecified severity, without behavioral disturbance, psychotic disturbance, mood disturbance, and anxiety; D64.9 Anemia, unspecified; R13.12 Dysphagia, oropharyngeal phase; Z51.5 Encounter for palliative care; Z74.01 Bed confinement status; Z93.1 Gastrostomy status; Z79.82 Long term (current) use of aspirin; Z79.02 Long term (current) use of antithrombotics/antiplatelets; Z79.899 Other long term (current) drug therapy; Z16.24 Resistance to multiple antibiotics
CPT/HCPCS: 36415; 36416; 36430; 71045; 80048; 80053; 80202; 81003; 81015; 82271; 82274; 82550; 82553; 83880; 84484; 85025; 86850; 86900; 86901; 87040; 87077; 87086; 87149; 87186; 93005; 93306; 94640; 94760; 96365; 96375; A4216; C9113; J0692; J1644; J1940; J1953; J1956; J2185; J2270; J3370; J7050; J7620; P9016; P9047; Q4081